=== PATIENT | female | born 2005 | race Caucasian/White ===

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

== ENCOUNTER 2024-01-13 04:03 | Inpatient (IN) | payer OTHER, SELFPAY ==
--- NOTE | 2024-01-13 | ECG_ITS ---
Test Reason : qt interval Blood Pressure : / mmHG Vent. Rate : 087 BPM Atrial Rate : 087 BPM P-R Int : 148 ms QRS Dur : 078 ms QT Int : 366 ms P-R-T Axes : 056 041 038 degrees QTc Int : 440 ms Normal sinus rhythm Possible Lateral infarct , age undetermined Abnormal ECG When compared with ECG of 28-DEC-2023 08:59, No significant change was found Referred By: Jolanta Tate Electronically Signed By:Hussein Gruber
[2024-01-13 04:07] VITALS: BMI 39.0
[2024-01-13 04:32] VITALS: BP 140/89; PULSE 103; RESP 17; TEMP 36.7; O2SAT 96
[2024-01-13 05:05] LABS: Basophils Percent Auto 0.4 % (0-2); Eosinophils Absolute Auto 0.1 X10*3/uL (0.0-0.4); Eosinophils Percent Auto 1.2 % (0-4); Hematocrit 41.5 % (37.0-47.0); Hemoglobin 13.6 g/dl (12.0-16.0); Imm Gran Abs Auto 0.01 X10*3/uL (0.00-0.03); Imm Gran Pct Auto 0.1 % (0.0-0.4); Lymphocytes Absolute Auto 2.2 X10*3/uL (1.2-4.9); MANUAL DIFF FLAG NO; Mean Corpuscular HGB Conc 32.8 g/dl (31.0-35.0); Mean Corpuscular Hemoglobin 27.4 pg (27.0-33.0); Mean Corpuscular Volume 83.7 fL (80.0-98.0); Mean Platelet Volume 10.5 fL (9.4-12.3); Monocytes Absolute Auto 0.5 X10*3/uL (0.1-1.2); Monocytes Percent Auto 6.6 % (2-11); Neutrophils Absolute Auto 4.2 x10*3/uL (2.0-8.3); Neutrophils Percent Auto 60.7 % (45-73); Platelet Count 257 X10*3/uL (160-400); Red Blood Count 4.96 X10*6/uL (4.20-5.50); Red Cell Distribution Width 12.9 % (11.0-16.0); White Blood Count 6.9 X10*3/uL (4.8-10.8)
[2024-01-13 05:19] LABS: Alanine Aminotransferase 27 U/L (0-31); Albumin Level 4.2 g/dL (3.5-5.0); Alkaline Phosphatase 71 U/L (39-117); Anion Gap 14 (12-20); Aspartate Amino Transferase 24 U/L (5-31); Bilirubin Total 0.3 mg/dL (0.0-1.0); Blood Urea Nitrogen 9 mg/dL (9-16); Calcium 9.1 mg/dL (8.4-10.2); Carbon Dioxide 23 mmol/L (22-29); Chloride 108 mmol/L (96-108); Creatinine Clr Calc Pharmacy 119.9; Estimated Glomerular Filt Rate > 60; Ethanol < 10 mg/dL; Glucose Random 120 mg/dL (60-115); Potassium 3.6 mmol/L (3.3-5.1); Sodium 141 mmol/L (135-145); Total Protein 7.6 g/dL (6.5-8.0)
--- NOTE | 2024-01-13 06:09 | ED_ITS ---
HPI - Psych General Chief Complaint: Psychiatric Symptoms Stated Complaint: section 12 Time Seen by Provider: 01/13/24 06:00 Source: patient and EMS Mode of arrival: EMS Limitations: no limitations History of Present Illness ED Provider: DR. Tate HPI Narrative: 18-year-old female brought in by ambulance under section 12 after made a suicidal statement that she will kill herself after having an argument with her family, patient had a history of multiple suicidal attempts in the past, patient was evaluated by [facility] at the scene was sent to the hospital for bed searching. Related Data Home Medications ?Medication ?Instructions ?Recorded ?Confirmed bupropion HCl (smoking deter) 150 150 mg PO DAILY 01/13/24 01/13/24 mg tablet,12 hr sustained-release(smoking deterrent) buspirone 15 mg tablet 15 mg PO QAM 01/13/24 01/13/24 melatonin 5 mg capsule 5 mg PO BEDTIME PRN insomnia 01/13/24 01/13/24 quetiapine 400 mg tablet,extended 400 mg PO BEDTIME depressive 01/13/24 01/13/24 release 24 hr (Seroquel XR) disorder Allergies Allergy/AdvReac Type Severity Reaction Status Date / Time haloperidol [From Haldol] AdvReac Severe Involuntary Verified 01/13/24 04:27 Spasms Review of Systems 2 Review of Systems: All other systems are reviewed and are negative Constitutional: Reports as per HPI and Reports no additional constitutional complaints Eyes: Reports as per HPI and Reports no additional eye complaints Reports system reviewed and no additional complaints, except as documented Cardiovascular: Reports as per HPI and Reports no additional cardiovascular complaints Respiratory: Reports as per HPI and Reports no additional respiratory complaints Gastrointestinal: Reports as per HPI and Reports no additional gastrointestinal complaints Genitourinary: Reports no additional female genitourinary complaints Musculoskeletal: Reports no additional musculoskeletal complaints Skin/Breast: Reports system reviewed and no additional complaints, except as docu Psychiatric: Reports no additional psychiatric complaints Endocrine: Reports no additional endocrine complaints Hematologic/Lymphatic: Reports no additional hematologic/lymphatic complaints Allergic/Immunologic: Reports no additional allergic/immunologic complaints Reports system reviewed and no additional complaints, except as documented and Reports Abnormal speech present PMFSH Past Medical History Medical History TBI (traumatic brain injury) Homicidal ideation Suicidal ideation Social History Social History Household Members: Family Housing: House Do you presently have visiting nurse or other home services: No Unable to assess alcohol history related to: Refusing to respond Comment: pt on 1:1 observation Patient Tobacco Use Status: Never used Tobacco e-Cigarette/Vaping Use: Never Used Second Hand Smoke Exposure: No Advance Directives: No Advance Directives Information Provided: Yes Do you have a plan to hurt others: No Plan service: No Sexual orientation: Unable to collect Physical Exam 2 Vital Signs: Vital Signs: Last Vital Signs Temp 98.1 F 01/13/24 04:32 Pulse 103 H 01/13/24 04:32 Resp 17 01/13/24 04:32 BP 140/89 H 01/13/24 04:32 Pulse Ox 96 01/13/24 04:32 O2 Del Method Room Air 01/13/24 04:32 BMI result Body Mass Index 39.0 Vital signs have been reviewed and appear to be correct. Blood pressure elevated. Heart rate normal. Respiratory rate normal. Temperature normal. Oxygen saturation normal. Appearance: Alert. Oriented X3. No acute distress. Head: Normal external exam. Normocephalic. Atraumatic. No Kaplan signs noted. No raccoon eyes noted Eyes: PERRLA. EOMI. Conjunctiva and sclera normal. Eyelids normal. ENT: TM's Normal. Pharynx normal. Uvula midline. Moist mucous membranes. No trismus noted. No drooling noted. No muffled voice noted. Neck: Normal inspection. Neck supple. FROM. No adenopathy. Thyroid Normal. No meningeal signs. No neck mass noted. CVS: Normal heart rate and rhythm. Heart sound normal. No murmurs noted. Pulses normal throughout. Respiratory: No respiratory distress. Painless inspiration. Breath sounds normal. No wheezes/rales/rhonchi noted. Chest nontender. No accessory muscle usage noted or decreased air movement noted. Abdomen: Soft and nontender. Bowel sounds normal in all 4 quadrants. No distention noted. No organomegaly noted. No visible injury noted. Back: No CVA tenderness. Full range of motion noted. Skin: Skin warm and dry. Normal skin color. Normal skin turgor. No rashes/lesions/lacerations noted. Extremities: No lower extremity edema. Extremities exhibit normal range of motion. Extremities nontender. Neuro: Oriented X 3. Cranial nerve exam: II-XII are grossly intact No motor deficit. No sensory deficit. Reflexes normal. Patient Orientation: Person, Place, Time and Situation, okay hygiene and grooming. Fair eye contact, attentive, no tics or tremors. Level of Consciousness: Awake, Appropriate and Alert Patient Behavior: Appropriate, Guarded, Cooperative and Anxious Mood Description: Constricted, Blunted and Apprehensive Affect Description: Constricted, Blunted and Apprehensive Patient Cognition Impaired: No Ability to Follow Directions: Excellent Speech Pattern: Clear, Appropriate and Spontaneous Speech, nonpressured, spontaneous with regular rate and rhythm, normal volume and prosody. No dysarthria. Memory Description: Intact, Immediate Intact and Short Term Intact Hallucinations: None Delusions: Not Present Thought Process: Intact Thought Content: positive for Intact, suicidal ideation with no plan, denies Homicidal Ideation. Depressive Symptoms: Not present. Judgement and Insight: Limited but adequate. Course Reevaluation(s) Reevaluation #1: Bed search is underway, medically cleared, will start physician observation, signed out to the upcoming physician. Time: 06:15 Medical Decision Making Differential Diagnosis Differential Diagnoses: The differential diagnosis associated with the presentation includes (Acute psychosis, acute depression, medical clearance.) Admission/Observation Consideration of admission/observation: Escalation of care including admission/observation considered Lab Data MDM Lab Attestation statement: I reviewed the patient's lab results. 01/13/24 04:59 01/13/24 04:59 Labs: Lab Results 01/13/24 Range/Units 04:59 WBC 6.9 (4.8-10.8) X10*3/uL RBC 4.96 (4.20-5.50) X10*6/uL Hgb 13.6 (12.0-16.0) g/dl Hct 41.5 (37.0-47.0) % MCV 83.7 (80.0-98.0) fL MCH 27.4 (27.0-33.0) pg MCHC 32.8 (31.0-35.0) g/dl RDW 12.9 (11.0-16.0) % Plt Count 257 (160-400) X10*3/uL MPV 10.5 (9.4-12.3) fL Immature Gran % (Auto) 0.1 (0.0-0.4) % Neut % (Auto) 60.7 (45-73) % Lymph % (Auto) 31.0 (20-40) % [place] % (Auto) 6.6 (2-11) % Eos % (Auto) 1.2 (0-4) % Baso % (Auto) 0.4 (0-2) % Lymph # (Auto) 2.2 (1.2-4.9) X10*3/uL [place] # (Auto) 0.5 (0.1-1.2) X10*3/uL Eos # (Auto) 0.1 (0.0-0.4) X10*3/uL Baso # (Auto) 0.0 (0.0-0.2) X10*3/uL Abs Immat Gran (auto) 0.01 (0.00-0.03) X10*3/uL Absolute Neuts (auto) 4.2 (2.0-8.3) x10*3/uL Absolute Nucleated RBC 0.000 (0.0-0.012) X10*3/uL Nucleated RBC % (auto) 0.0 (0.0-0.2) /100WBC Sodium 141 (135-145) mmol/L Potassium 3.6 (3.3-5.1) mmol/L Chloride 108 (96-108) mmol/L Carbon Dioxide 23 (22-29) mmol/L Anion Gap 14 (12-20) BUN 9 (9-16) mg/dL Creatinine 0.85 (0.5-1.4) mg/dL Estim Creat Clear Calc 119.9 Estimated GFR > 60 Random Glucose 120 H (60-115) mg/dL Calcium 9.1 D (8.4-10.2) mg/dL Total Bilirubin 0.3 (0.0-1.0) mg/dL AST 24 (5-31) U/L ALT 27 (0-31) U/L Alkaline Phosphatase 71 (39-117) U/L Total Protein 7.6 (6.5-8.0) g/dL Albumin 4.2 (3.5-5.0) g/dL Ethyl Alcohol < 10 mg/dL Discharge Plan Discharge Clinical Impression: Depression, Suicidal ideation Patient Disposition: Still a Patient Prescriptions: No Action buspirone 15 mg tablet 15 mg PO QAM quetiapine [Seroquel XR] 400 mg tablet extended release 24 hr 400 mg PO BEDTIME melatonin 5 mg capsule 5 mg PO BEDTIME PRN (Reason: insomnia) bupropion HCl (smoking deter) 150 mg tablet extended release 12 hr 150 mg PO DAILY Interventions: Gregg-Suicide Risk Severity Scale Last Done: 01/13/24 04:34 Print Language: Kiswahili
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
--- NOTE | 2024-01-13 07:13 | PC.NURSE ---
Assumed care of patient at 0645, patient ambulating with steady gait around pod. Offering no complaints to this RN. Patient remains inpatient bedsearch via [facility] at this time
[2024-01-13] MEDS: QUEtiapine Fumarate 200 MG TABLET PO ×2 (08:27→21:33)
[2024-01-13] MEDS: buPROPion HCL 75 MG TABLET 150 MG PO (08:27)
[2024-01-13] MEDS: busPIRone HCl 5 MG TABLET 15 MG PO (08:27)
[2024-01-13 09:09] LABS: Appearance Urine Clear; Color Urine Yellow; Glucose Urine UA Negative (Negative); Leukocyte Esterase Urine Negative (Negative); Nitrite Urine Negative (Negative); PH 6.5 (5.0-9.0); Urine Blood Negative (Negative); Urine Ketones Negative (Negative); Urine Protein Negative (Neg-Trace)
[2024-01-13 09:10] LABS: UPreg QC Valid YES; Urine Pregnancy NEGATIVE (NEGATIVE)
[2024-01-13 09:20] LABS: Amphetamine Screen Urine Not Detected (Not Detect); Barbiturates, Urine Not Detected (Not Detect); Benzodiazepines Screen Urine Not Detected (Not Detect); Buprenorphine Scr Not Detected (Not Detect); Cannabinoid Screen Urine Not Detected (Not Detect); Cocaine Screen Urine Not Detected (Not Detect); Fentanyl, urine Not Detected (Not Detect); Methadone Screen, Urine Not Detected (Not Detect); Opiate Screen Urine Not Detected (Not Detect); Oxycodone Screen Urine Not Detected (Not Detect); Phencyclidine Screen Urine Not Detected (Not Detect)
--- NOTE | 2024-01-13 14:42 | MHC.CARE ---
Patient's new [facility] clinician Ritchie calls for information on patient. Her contact is [phone]. Her email is [email or web address] She would like to be involved in discharge planning/ coordination.
[2024-01-13 17:22] VITALS: BP 132/94; PULSE 111; RESP 16; TEMP 36.6; O2SAT 99
[2024-01-13 17:26] VITALS: BMI 39.0
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
[2024-01-13] MEDS: hydrOXYzine HCL 25 MG TABLET PO (18:41)
[2024-01-13 20:00] VITALS: BP 162/78; PULSE 108; TEMP 37.2; O2SAT 99
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
[2024-01-13] MEDS: Melatonin 3 MG TABLET 6 MG PO (21:33)
[2024-01-14 08:00] VITALS: BP 113/70; PULSE 81; RESP 16; TEMP 36.8; O2SAT 97
--- NOTE | 2024-01-14 08:05 | HO.PSYCHPN ---
Subjective Subjective Date of Service: 01/14/24 Reason For Visit: PTSD; Depression Subjective Notes: Conditional Voluntary Interim History: pt seen in room; pt lying in bed and apperas to be sleeping; she remained mute upon ninteraction; In NAD. compliant with meds. Medication Compliance: Yes Side effects from medications: No Attending Groups: No Review of Systems Medical Review of Systems: unchanged Review of Systems Review of Systems All other systems are reviewed and are negative Constitutional: Reports as per HPI and Reports no additional constitutional complaints Eyes: Reports as per HPI and Reports no additional eye complaints Reports system reviewed and no additional complaints, except as documented Cardiovascular: Reports as per HPI and Reports no additional cardiovascular complaints Respiratory: Reports as per HPI and Reports no additional respiratory complaints Gastrointestinal: Reports as per HPI and Reports no additional gastrointestinal complaints Genitourinary: Reports no additional female genitourinary complaints Musculoskeletal: Reports no additional musculoskeletal complaints Skin/Breast: Reports system reviewed and no additional complaints, except as docu Psychiatric: Reports no additional psychiatric complaints Endocrine: Reports no additional endocrine complaints Hematologic/Lymphatic: Reports no additional hematologic/lymphatic complaints Allergic/Immunologic: Reports no additional allergic/immunologic complaints Reports system reviewed and no additional complaints, except as documented and Reports Abnormal speech present Yes all other systems are reviewed and are negative Mental Status Exam Mental Status Exam Patient Appearance: Appropriate Patient Orientation: Person, Place, Time and Situation Level of Consciousness: Drowsy Patient Behavior: Uncooperative Mood Description: Depressed Affect Description: Flat Patient Cognition Impaired: No Ability to Follow Directions: Good Speech Pattern: No Speech Memory Description: Intact Judgement: Poor Diagnostics Vital Signs (24Hr): Vital Signs - 24 hr 01/13/24 17:22 01/13/24 20:00 Temperature 97.8 F 98.9 F Pulse Rate 111 H 108 H Respiratory Rate 16 Blood Pressure 132/94 H 162/78 H Pulse Oximetry 99 99 Oxygen Delivery Method Room Air Room Air BMI result Body Mass Index 39.0 Labs 01/13/24 04:59 01/13/24 04:59 Labs: Laboratory Results - last 48 hr 01/13/24 01/13/24 04:59 08:59 WBC 6.9 RBC 4.96 Hgb 13.6 Hct 41.5 MCV 83.7 MCH 27.4 MCHC 32.8 RDW 12.9 Plt Count 257 MPV 10.5 Immature Gran % (Auto) 0.1 Neut % (Auto) 60.7 Lymph % (Auto) 31.0 [place] % (Auto) 6.6 Eos % (Auto) 1.2 Baso % (Auto) 0.4 Lymph # (Auto) 2.2 [place] # (Auto) 0.5 Eos # (Auto) 0.1 Baso # (Auto) 0.0 Abs Immat Gran (auto) 0.01 Absolute Neuts (auto) 4.2 Absolute Nucleated RBC 0.000 Nucleated RBC % (auto) 0.0 Sodium 141 Potassium 3.6 Chloride 108 Carbon Dioxide 23 Anion Gap 14 BUN 9 Creatinine 0.85 Estim Creat Clear Calc 119.9 Estimated GFR > 60 Random Glucose 120 H Calcium 9.1 D Total Bilirubin 0.3 AST 24 ALT 27 Alkaline Phosphatase 71 Total Protein 7.6 Albumin 4.2 Urine Color Yellow Urine Appearance Clear Urine pH 6.5 Ur Specific [place] 1.020 Urine Protein Negative Urine Glucose (UA) Negative Urine Ketones Negative Urine Blood Negative Urine Nitrite Negative Ur Leukocyte Esterase Negative Urine Test NEGATIVE Urine Opiates Screen Not Detected Ur Buprenorphine Scrn Not Detected Ur Oxycodone Screen Not Detected Urine Methadone Screen Not Detected Urine Fentanyl Screen Not Detected Ur Barbiturates Screen Not Detected Ur Phencyclidine Scrn Not Detected Ur Amphetamines Screen Not Detected U Benzodiazepines Scrn Not Detected Urine Cocaine Screen Not Detected U Marijuana (THC) Screen Not Detected Ethyl Alcohol < 10 Medications Medications Current Medications Acetaminophen (Acetaminophen 325 Mg Tablet) 650 mg PO Q6H PRN PRN Reason: Headache/Pain Mild Scale (1-3) Al Hydroxide/Mg Hydroxide (Magnesium Hydrox/Alum Hydrox 30 Ml Oral.Susp) 30 ml PO Q6H PRN PRN Reason: Heartburn/Nausea Bupropion HCl (Bupropion Hcl Xl 150 Mg Tab.Er.24h) 150 mg PO DAILY MARY Buspirone HCl (Buspirone Hcl 5 Mg Tablet) 15 mg PO DAILY MARY Hydroxyzine HCl (Hydroxyzine Hcl 25 Mg Tablet) 25 mg PO Q6H PRN PRN Reason: Anxiety Last Admin: 01/13/24 18:41 Dose: 25 mg Magnesium Hydroxide (Milk Of Magnesia 30 Ml Oral.Susp) 30 ml PO DAILY PRN PRN Reason: Constipation Melatonin (Melatonin 3 Mg Tablet) 6 mg PO BEDTIME PRN PRN Reason: Insomnia Last Admin: 01/13/24 21:33 Dose: 6 mg Quetiapine Fumarate (Quetiapine Fumarate 200 Mg Tablet) 200 mg PO BID MARY Last Admin: 01/13/24 21:33 Dose: 200 mg Trazodone HCl (Trazodone Hcl 50 Mg Tablet) 50 mg PO BEDTIME MRX1 PRN PRN Reason: Insomnia Allergies Allergies Allergy/AdvReac Type Severity Reaction Status Date / Time haloperidol [From Haldol] AdvReac Severe Involuntary Verified 01/13/24 04:27 Spasms Assessment & Plan Assessment & Plan (1) PTSD (post-traumatic stress disorder): Status: Acute Code(s): F43.10 - Post-traumatic stress disorder, unspecified (2) MDD (major depressive disorder), recurrent, severe, with psychosis: Status: Acute Code(s): F33.3 - Major depressive disorder, recurrent, severe with psychotic symptoms (3) Borderline personality disorder: Status: Acute Code(s): F60.3 - Borderline personality disorder (4) Suicidal ideation: Status: Acute Code(s): R45.851 - Suicidal ideations Plan 18 yo female, history of PTSD, Major Depression, Borderline personality disorder presents with acute SI in the context of medicine noncompliance per her report. Plan: Admit, CV, 15 minute checks- pt believes she can manage this at this time. Collateral contact with treatment team Re-establish regime-pt agrees Full milieu 01/14/24 continue treatment plan Reason for continued inpatient stay Substantial Risk for: harm to self, inability to function and rapid decompensation Time Spent With Patient Time: Total time managing care of this patient today ____ minutes.
[2024-01-14 08:06] LABS: Estimated Average Glucose 103 mg/dL; Hemoglobin A1c % 5.2 % (<6.0)
[2024-01-14 08:18] LABS: Cholesterol 157 mg/dL (<200); HDL Cholesterol 52 mg/dL (>40); LDL Cholesterol Calculated 96 mg/dL (<100); Magnesium 1.8 mg/dL (1.6-2.6); Triglycerides 45 mg/dL (<150)
[2024-01-14 08:33] LABS: Free T4 (Free Thyroxine) 0.84 ng/dL (0.71-1.85); Thyroid Stimulating Hormone 0.76 uIU/mL (0.32-4.0)
[2024-01-14 08:45] LABS: Folate 13.1 ng/mL (> or = 4.0); Vitamin B12 375 pg/mL (200-900)
[2024-01-14] MEDS: QUEtiapine Fumarate 200 MG TABLET PO ×2 (09:15→21:25)
[2024-01-14] MEDS: busPIRone HCl 5 MG TABLET 15 MG PO (09:15)
[2024-01-14] MEDS: buPROPion HCl XL 150 MG TAB.ER.24H PO (09:16)
[2024-01-14 20:00] VITALS: BP 128/77; PULSE 99; TEMP 37; O2SAT 99
[2024-01-15 08:00] VITALS: BP 110/59; PULSE 83; RESP 16; TEMP 37.2; O2SAT 96
--- NOTE | 2024-01-15 10:26 | HO.PSYCHPN ---
Subjective Subjective Date of Service: 01/15/24 Reason For Visit: PTSD; Depression Interim History: pt more easily engaged today; good eye contact; requests seroquele dosing to be at night as she didn't sleep at night and them slept 10+ during the day. no self harm Medication Compliance: Yes Side effects from medications: Yes (not sleeping then daytime sedation) Review of Systems Review of Systems All other systems are reviewed and are negative Constitutional: Reports as per HPI and Reports no additional constitutional complaints Eyes: Reports as per HPI and Reports no additional eye complaints Reports system reviewed and no additional complaints, except as documented Cardiovascular: Reports as per HPI and Reports no additional cardiovascular complaints Respiratory: Reports as per HPI and Reports no additional respiratory complaints Gastrointestinal: Reports as per HPI and Reports no additional gastrointestinal complaints Genitourinary: Reports no additional female genitourinary complaints Musculoskeletal: Reports no additional musculoskeletal complaints Skin/Breast: Reports system reviewed and no additional complaints, except as docu Psychiatric: Reports no additional psychiatric complaints Endocrine: Reports no additional endocrine complaints Hematologic/Lymphatic: Reports no additional hematologic/lymphatic complaints Allergic/Immunologic: Reports no additional allergic/immunologic complaints Reports system reviewed and no additional complaints, except as documented and Reports Abnormal speech present Yes all other systems are reviewed and are negative Mental Status Exam Mental Status Exam Patient Appearance: Appropriate Patient Orientation: Person, Place, Time and Situation Level of Consciousness: Drowsy Patient Behavior: Uncooperative Mood Description: Depressed Affect Description: Flat Patient Cognition Impaired: No Ability to Follow Directions: Good Speech Pattern: No Speech Memory Description: Intact Judgement: Fair Diagnostics Vital Signs (24Hr): Vital Signs - 24 hr 01/14/24 20:00 Temperature 98.6 F Pulse Rate 99 Blood Pressure 128/77 Pulse Oximetry 99 Oxygen Delivery Method Room Air BMI result Body Mass Index 39.0 Labs 01/13/24 04:59 01/13/24 04:59 Labs: Laboratory Results - last 48 hr 01/14/24 07:47 Estimat Average Glucose 103 Hemoglobin A1c % 5.2 Magnesium 1.8 Triglycerides 45 Cholesterol 157 LDL Cholesterol, Calc 96 HDL Cholesterol 52 Vitamin B12 375 Folate 13.1 TSH 0.76 Free T4 0.84 Medications Medications Current Medications Acetaminophen (Acetaminophen 325 Mg Tablet) 650 mg PO Q6H PRN PRN Reason: Headache/Pain Mild Scale (1-3) Al Hydroxide/Mg Hydroxide (Magnesium Hydrox/Alum Hydrox 30 Ml Oral.Susp) 30 ml PO Q6H PRN PRN Reason: Heartburn/Nausea Bupropion HCl (Bupropion Hcl Xl 150 Mg Tab.Er.24h) 150 mg PO DAILY [facility] Last Admin: 01/14/24 09:16 Dose: 150 mg Buspirone HCl (Buspirone Hcl 5 Mg Tablet) 15 mg PO DAILY [facility] Last Admin: 01/14/24 09:15 Dose: 15 mg Hydroxyzine HCl (Hydroxyzine Hcl 25 Mg Tablet) 25 mg PO Q6H PRN PRN Reason: Anxiety Last Admin: 01/13/24 18:41 Dose: 25 mg Magnesium Hydroxide (Milk Of Magnesia 30 Ml Oral.Susp) 30 ml PO DAILY PRN PRN Reason: Constipation Melatonin (Melatonin 3 Mg Tablet) 6 mg PO BEDTIME PRN PRN Reason: Insomnia Last Admin: 01/13/24 21:33 Dose: 6 mg Quetiapine Fumarate (Quetiapine Fumarate 200 Mg Tablet) 200 mg PO BID [facility] Last Admin: 01/14/24 21:25 Dose: 200 mg Trazodone HCl (Trazodone Hcl 50 Mg Tablet) 50 mg PO BEDTIME MRX1 PRN PRN Reason: Insomnia Allergies Allergies Allergy/AdvReac Type Severity Reaction Status Date / Time haloperidol [From Haldol] AdvReac Severe Involuntary Verified 01/13/24 04:27 Spasms Assessment & Plan Assessment & Plan (1) PTSD (post-traumatic stress disorder): Status: Acute Code(s): F43.10 - Post-traumatic stress disorder, unspecified (2) MDD (major depressive disorder), recurrent, severe, with psychosis: Status: Acute Code(s): F33.3 - Major depressive disorder, recurrent, severe with psychotic symptoms (3) Borderline personality disorder: Status: Acute Code(s): F60.3 - Borderline personality disorder (4) Suicidal ideation: Status: Acute Code(s): R45.851 - Suicidal ideations Plan 18 yo female, history of PTSD, Major Depression, Borderline personality disorder presents with acute SI in the context of medicine noncompliance per her report. Plan: Admit, CV, 15 minute checks- pt believes she can manage this at this time. Collateral contact with treatment team Re-establish regime-pt agrees Full milieu 01/14/24 continue treatment plan 01/14 seroquel 400mg at bedtime Reason for continued inpatient stay Substantial Risk for: harm to self and inability to function Time Spent With Patient Time: Total time managing care of this patient today ____ minutes.
[2024-01-15] MEDS: busPIRone HCl 5 MG TABLET 15 MG PO (10:32)
[2024-01-15] MEDS: buPROPion HCl XL 150 MG TAB.ER.24H PO (10:33)
[2024-01-15 20:00] VITALS: BP 144/102; PULSE 95; RESP 18; TEMP 37; O2SAT 94
[2024-01-15] MEDS: Melatonin 3 MG TABLET 6 MG PO (22:08)
[2024-01-15] MEDS: QUEtiapine Fumarate 400 MG TABLET PO (22:09)
[2024-01-16 08:00] VITALS: BP 107/47; PULSE 87; RESP 16; TEMP 37.4; O2SAT 98
[2024-01-16] MEDS: buPROPion HCl XL 150 MG TAB.ER.24H PO (11:17)
[2024-01-16] MEDS: busPIRone HCl 5 MG TABLET 15 MG PO (11:17)
[2024-01-16] MEDS: hydrOXYzine HCL 25 MG TABLET PO ×2 (16:57→23:55)
--- NOTE | 2024-01-16 19:03 | P.PNPSI_ITS ---
Subjective Subjective Date of Service: 01/16/24 Reason For Visit: PTSD; Depression Interim History: pt more visible on unit; more eye contact; more easily engaged; brighter; Medication Compliance: Yes Side effects from medications: No Attending Groups: No Review of Systems Review of Systems All other systems are reviewed and are negative Constitutional: Reports as per HPI and Reports no additional constitutional complaints Eyes: Reports as per HPI and Reports no additional eye complaints Reports system reviewed and no additional complaints, except as documented Cardiovascular: Reports as per HPI and Reports no additional cardiovascular complaints Respiratory: Reports as per HPI and Reports no additional respiratory complaints Gastrointestinal: Reports as per HPI and Reports no additional gastrointestinal complaints Genitourinary: Reports no additional female genitourinary complaints Musculoskeletal: Reports no additional musculoskeletal complaints Skin/Breast: Reports system reviewed and no additional complaints, except as docu Psychiatric: Reports no additional psychiatric complaints Endocrine: Reports no additional endocrine complaints Hematologic/Lymphatic: Reports no additional hematologic/lymphatic complaints Allergic/Immunologic: Reports no additional allergic/immunologic complaints Reports system reviewed and no additional complaints, except as documented and Reports Abnormal speech present Yes all other systems are reviewed and are negative Mental Status Exam Mental Status Exam Patient Appearance: Appropriate Patient Orientation: Person, Place, Time and Situation Level of Consciousness: Drowsy Patient Behavior: Uncooperative Mood Description: Depressed Affect Description: Flat Patient Cognition Impaired: No Ability to Follow Directions: Good Speech Pattern: No Speech Memory Description: Intact Thought Process: Distracted Thought Content: positive for Lipscomb Judgement: Fair Diagnostics Vital Signs (24Hr): Vital Signs - 24 hr 01/15/24 20:00 01/16/24 08:00 Temperature 98.6 F 99.3 F Pulse Rate 95 87 Respiratory Rate 18 16 Blood Pressure 144/102 H 107/47 L Pulse Oximetry 94 98 Oxygen Delivery Method Room Air Room Air BMI result Body Mass Index 39.0 Labs 01/13/24 04:59 01/13/24 04:59 Medications Medications Current Medications Acetaminophen (Acetaminophen 325 Mg Tablet) 650 mg PO Q6H PRN PRN Reason: Headache/Pain Mild Scale (1-3) Al Hydroxide/Mg Hydroxide (Magnesium Hydrox/Alum Hydrox 30 Ml Oral.Susp) 30 ml PO Q6H PRN PRN Reason: Heartburn/Nausea Bupropion HCl (Bupropion Hcl Xl 150 Mg Tab.Er.24h) 150 mg PO DAILY [facility] Last Admin: 05/27/24 11:17 Dose: 150 mg Buspirone HCl (Buspirone Hcl 5 Mg Tablet) 15 mg PO DAILY [facility] Last Admin: 01/16/24 11:17 Dose: 15 mg Hydroxyzine HCl (Hydroxyzine Hcl 25 Mg Tablet) 25 mg PO Q6H PRN PRN Reason: Anxiety Last Admin: 01/16/24 16:57 Dose: 25 mg Magnesium Hydroxide (Milk Of Magnesia 30 Ml Oral.Susp) 30 ml PO DAILY PRN PRN Reason: Constipation Melatonin (Melatonin 3 Mg Tablet) 6 mg PO BEDTIME [facility] Last Admin: 01/15/24 22:08 Dose: 6 mg Pt Own (Quetiapine [ Seroquel Xr] 400 Mg Tablet Extended Release 24 Hr) 400 mg PO BEDTIME [facility] Trazodone HCl (Trazodone Hcl 50 Mg Tablet) 50 mg PO BEDTIME MRX1 PRN PRN Reason: Insomnia Allergies Allergies Allergy/AdvReac Type Severity Reaction Status Date / Time haloperidol [From Haldol] AdvReac Severe Involuntary Verified 01/13/24 04:27 Spasms Assessment & Plan Assessment & Plan (1) PTSD (post-traumatic stress disorder): Status: Acute Code(s): F43.10 - Post-traumatic stress disorder, unspecified (2) MDD (major depressive disorder), recurrent, severe, with psychosis: Status: Acute Code(s): F33.3 - Major depressive disorder, recurrent, severe with psychotic symptoms (3) Borderline personality disorder: Status: Acute Code(s): F60.3 - Borderline personality disorder (4) Suicidal ideation: Status: Acute Code(s): R45.851 - Suicidal ideations Plan 18 yo female, history of PTSD, Major Depression, Borderline personality disorder presents with acute SI in the context of medicine noncompliance per her report. Plan: Admit, CV, 15 minute checks- pt believes she can manage this at this time. Collateral contact with treatment team Re-establish regime-pt agrees Full milieu 01/14/24 continue treatment plan 01/14 seroquel 400mg at bedtime 01/15 continue tx plan Reason for continued inpatient stay Substantial Risk for: harm to self, inability to function and rapid decompensation Time Spent With Patient Time: Total time managing care of this patient today ____ minutes.
[2024-01-16 20:00] VITALS: BP 137/76; PULSE 107; RESP 17; TEMP 36.4; O2SAT 96
[2024-01-16] MEDS: traZODone HCL 50 MG TABLET PO (20:25)
[2024-01-16] MEDS: Melatonin 3 MG TABLET 6 MG PO (20:25)
[2024-01-16] MEDS: OLANZapine 5 MG TABLET PO (23:00)
--- NOTE | 2024-01-17 05:29 | PC.NURSE ---
[facility] on floor noted patient had very small piece of plastic that almost looked like a fingernail that she was poking her wrist with and would not give it to staff. Object was so small and pliable that no trauma could occur. Soon after patient started to bang her head on the wall without much force but consistently. Staff intervened and put a pillow on the wall. The patient stopped shortly after. The patient was compliant with meds before this occurred. RN texted MD who ordered medication and a one to one for self harm/safety. Zyprexa was administered. Patient was restless last night and slept for approximately 5 hours without any further incidence.
[2024-01-17 08:00] VITALS: BP 122/51; PULSE 88; RESP 16; TEMP 36.1; O2SAT 98
[2024-01-17] MEDS: busPIRone HCl 5 MG TABLET 15 MG PO (10:02)
[2024-01-17] MEDS: buPROPion HCl XL 150 MG TAB.ER.24H PO (10:02)
--- NOTE | 2024-01-17 10:21 | HO.PSYCHPN ---
Subjective Subjective Date of Service: 01/17/24 Reason For Visit: PTSD; Depression Subjective Notes: Conditional Voluntary Healthcare Proxy: No Guardianship: No Medical Problems Affecting Mental Status: No Interim History: Reviewed with team. +SI, inability to contract for safety. Cites difficult family interaction over the weekend. I want to because I can't take my family. One to one status returned. Non verbal-offers her journal entries and writing responses today. Very communicative in writing. Identifies that going off of meds has caused her to feel more unsafe and she is now thinking that trialing one med at a time was not a good idea. Aware that buspirone does not work, Naltrexone helps. Asks about another antidepressant. Connection attempted with Dr. Pablo with her permission. Medication Compliance: Yes Side effects from medications: No Attending Groups: Intermittent Review of Systems Acute medical concerns: No Medical Review of Systems: unchanged Review of Systems Review of Systems Yes all other systems are reviewed and are negative Mental Status Exam Mental Status Exam Patient Appearance: Appropriate Patient Orientation: Person, Place, Time and Situation Level of Consciousness: Alert Patient Behavior: Good Eye Contact Mood Description: Depressed Affect Description: Flat Patient Cognition Impaired: No Ability to Follow Directions: Good Speech Pattern: No Speech (written communication only.) Memory Description: Intact Hallucinations: None Perceptual Disturbances: Depersonalization and Derealization Thought Process: Rumination Thought Content: positive for Preoccupation and positive for Suicidal Ideation Depressive Symptoms: Increased Anxiety, Hopelessness, Unhappiness and Thoughts of /Suicide Judgement: Poor Diagnostics Vital Signs (24Hr): Vital Signs - 24 hr 01/16/24 20:00 Temperature 97.6 F Pulse Rate 107 H Respiratory Rate 17 Blood Pressure 137/76 Pulse Oximetry 96 Oxygen Delivery Method Room Air BMI result Body Mass Index 39.0 Labs 01/13/24 04:59 01/13/24 04:59 Medications Medications Current Medications Acetaminophen (Acetaminophen 325 Mg Tablet) 650 mg PO Q6H PRN PRN Reason: Headache/Pain Mild Scale (1-3) Al Hydroxide/Mg Hydroxide (Magnesium Hydrox/Alum Hydrox 30 Ml Oral.Susp) 30 ml PO Q6H PRN PRN Reason: Heartburn/Nausea Bupropion HCl (Bupropion Hcl Xl 150 Mg Tab.Er.24h) 150 mg PO DAILY [facility] Last Admin: 01/17/24 10:02 Dose: 150 mg Buspirone HCl (Buspirone Hcl 5 Mg Tablet) 15 mg PO DAILY [facility] Last Admin: 01/17/24 10:02 Dose: 15 mg Hydroxyzine HCl (Hydroxyzine Hcl 25 Mg Tablet) 25 mg PO Q6H PRN PRN Reason: Anxiety Last Admin: 01/16/24 23:55 Dose: 25 mg Magnesium Hydroxide (Milk Of Magnesia 30 Ml Oral.Susp) 30 ml PO DAILY PRN PRN Reason: Constipation Melatonin (Melatonin 3 Mg Tablet) 6 mg PO BEDTIME [facility] Last Admin: 01/16/24 20:25 Dose: 6 mg Pt Own (Quetiapine [ Seroquel Xr] 400 Mg Tablet Extended Release 24 Hr) 400 mg PO BEDTIME [facility] Last Admin: 01/16/24 20:28 Dose: 400 mg Olanzapine (Olanzapine 5 Mg Tablet) 5 mg PO TID PRN PRN Reason: agitation Last Admin: 01/16/24 23:00 Dose: 5 mg Trazodone HCl (Trazodone Hcl 50 Mg Tablet) 50 mg PO BEDTIME MRX1 PRN PRN Reason: Insomnia Last Admin: 01/16/24 20:25 Dose: 50 mg Allergies Allergies Allergy/AdvReac Type Severity Reaction Status Date / Time haloperidol [From Haldol] AdvReac Severe Involuntary Verified 01/13/24 04:27 Spasms Assessment & Plan Assessment & Plan (1) PTSD (post-traumatic stress disorder): Status: Acute Code(s): F43.10 - Post-traumatic stress disorder, unspecified (2) MDD (major depressive disorder), recurrent, severe, with psychosis: Status: Acute Code(s): F33.3 - Major depressive disorder, recurrent, severe with psychotic symptoms (3) Borderline personality disorder: Status: Acute Code(s): F60.3 - Borderline personality disorder (4) Suicidal ideation: Status: Acute Code(s): R45.851 - Suicidal ideations Plan 18 yo female, history of PTSD, Major Depression, Borderline personality disorder presents with acute SI in the context of medicine noncompliance per her report. Plan: Admit, CV, 15 minute checks- pt believes she can manage this at this time. Collateral contact with treatment team Re-establish regime-pt agrees Full milieu 01/14/24 continue treatment plan 01/14 seroquel 400mg at bedtime 01/15 continue tx plan 01/16 restart Naltrexone 50 mg daily Informed Consent: understands and further education needed Reason for continued inpatient stay Substantial Risk for: rapid decompensation Time Spent With Patient Time: Total time managing care of this patient today ____ minutes.
[2024-01-17 19:46] VITALS: BP 132/83; PULSE 92; RESP 16; TEMP 37.7; O2SAT 97
[2024-01-17] MEDS: Melatonin 3 MG TABLET 6 MG PO (21:09)
[2024-01-17] MEDS: OLANZapine 5 MG TABLET PO (21:11)
--- NOTE | 2024-01-18 10:00 | P.PNPSI_ITS ---
Subjective Subjective Date of Service: 01/18/24 Reason For Visit: PTSD; Depression Subjective Notes: Conditional Voluntary Healthcare Proxy: No Guardianship: No Medical Problems Affecting Mental Status: No Interim History: I really don't want to talk today. One to one in place Agreeable to review Dr. Pablo's list of trials pt has had which she did and agrees- these are in her intake note. Will trial Sertraline 25 mg a.m., Clonidine 0.1 mg bid prn for anxiety and Lorazepam 0.5 mg q12h prn for severe anxiety. Pt concurs +SI/-HI/-AH/-VH Medication Compliance: Yes Side effects from medications: No Attending Groups: Intermittent Review of Systems Acute medical concerns: No Medical Review of Systems: unchanged Review of Systems Review of Systems Yes all other systems are reviewed and are negative Mental Status Exam Mental Status Exam Patient Appearance: Appropriate Patient Orientation: Person, Place, Time and Situation Level of Consciousness: Alert Patient Behavior: Good Eye Contact Mood Description: Depressed Affect Description: Flat Patient Cognition Impaired: No Ability to Follow Directions: Good Speech Pattern: Spontaneous Speech Memory Description: Intact Hallucinations: None Perceptual Disturbances: Depersonalization and Derealization Thought Process: Rumination Thought Content: positive for Preoccupation and positive for Suicidal Ideation Depressive Symptoms: Increased Anxiety, Hopelessness, Unhappiness and Thoughts of /Suicide Judgement: Poor Diagnostics Vital Signs (24Hr): Vital Signs - 24 hr 01/17/24 19:46 Temperature 99.8 F Pulse Rate 92 Respiratory Rate 16 Blood Pressure 132/83 Pulse Oximetry 97 Oxygen Delivery Method Room Air BMI result Body Mass Index 39.0 Labs 01/13/24 04:59 01/13/24 04:59 Medications Medications Current Medications Acetaminophen (Acetaminophen 325 Mg Tablet) 650 mg PO Q6H PRN PRN Reason: Headache/Pain Mild Scale (1-3) Al Hydroxide/Mg Hydroxide (Magnesium Hydrox/Alum Hydrox 30 Ml Oral.Susp) 30 ml PO Q6H PRN PRN Reason: Heartburn/Nausea Bupropion HCl (Bupropion Hcl Xl 150 Mg Tab.Er.24h) 150 mg PO DAILY [facility] Last Admin: 01/17/24 10:02 Dose: 150 mg Buspirone HCl (Buspirone Hcl 5 Mg Tablet) 15 mg PO DAILY [facility] Last Admin: 01/17/24 10:02 Dose: 15 mg Hydroxyzine HCl (Hydroxyzine Hcl 25 Mg Tablet) 25 mg PO Q6H PRN PRN Reason: Anxiety Last Admin: 01/16/24 23:55 Dose: 25 mg Magnesium Hydroxide (Milk Of Magnesia 30 Ml Oral.Susp) 30 ml PO DAILY PRN PRN Reason: Constipation Melatonin (Melatonin 3 Mg Tablet) 6 mg PO BEDTIME [facility] Last Admin: 01/17/24 21:09 Dose: 6 mg Naltrexone HCl (Naltrexone Hcl 50 Mg Tablet) 50 mg PO DAILY [facility] Pt Own (Quetiapine [ Seroquel Xr] 400 Mg Tablet Extended Release 24 Hr) 400 mg PO BEDTIME [facility] Last Admin: 01/17/24 21:09 Dose: 400 mg Olanzapine (Olanzapine 5 Mg Tablet) 5 mg PO TID PRN PRN Reason: agitation Last Admin: 01/17/24 21:11 Dose: 5 mg Trazodone HCl (Trazodone Hcl 50 Mg Tablet) 50 mg PO BEDTIME MRX1 PRN PRN Reason: Insomnia Last Admin: 01/16/24 20:25 Dose: 50 mg Allergies Allergies Allergy/AdvReac Type Severity Reaction Status Date / Time haloperidol [From Haldol] AdvReac Severe Involuntary Verified 01/13/24 04:27 Spasms Assessment & Plan Assessment & Plan (1) PTSD (post-traumatic stress disorder): Status: Acute Code(s): F43.10 - Post-traumatic stress disorder, unspecified (2) MDD (major depressive disorder), recurrent, severe, with psychosis: Status: Acute Code(s): F33.3 - Major depressive disorder, recurrent, severe with psychotic symptoms (3) Borderline personality disorder: Status: Acute Code(s): F60.3 - Borderline personality disorder (4) Suicidal ideation: Status: Acute Code(s): R45.851 - Suicidal ideations Plan 18 yo female, history of PTSD, Major Depression, Borderline personality disorder presents with acute SI in the context of medicine noncompliance per her report. Plan: Admit, CV, 15 minute checks- pt believes she can manage this at this time. Collateral contact with treatment team Re-establish regime-pt agrees Full milieu 01/14/24 continue treatment plan 01/14 seroquel 400mg at bedtime 01/15 continue tx plan 01/16 restart Naltrexone 50 mg daily 01/17 Clonidine 0.1 mg bid prn anxiety Lorazepam 0.5 mg q12h prn severe anxiety Sertraline 25 mg daily Patient educated on: medication risk/benefits Informed Consent: further education needed Reason for continued inpatient stay Substantial Risk for: rapid decompensation Time Spent With Patient Time: Total time managing care of this patient today ____ minutes.
[2024-01-18] MEDS: Naltrexone HCl 50 MG TABLET PO (11:45)
[2024-01-18] MEDS: busPIRone HCl 5 MG TABLET 15 MG PO (11:45)
[2024-01-18] MEDS: buPROPion HCl XL 150 MG TAB.ER.24H PO (11:45)
[2024-01-18 20:00] VITALS: BP 123/73; PULSE 95; RESP 18; TEMP 37.7; O2SAT 98
[2024-01-18] MEDS: Melatonin 3 MG TABLET 6 MG PO (21:13)
[2024-01-18] MEDS: traZODone HCL 50 MG TABLET PO (21:13)
[2024-01-18] MEDS: hydrOXYzine HCL 25 MG TABLET PO (21:21)
[2024-01-19 08:00] VITALS: BP 112/55; PULSE 79; RESP 16; TEMP 37; O2SAT 99
[2024-01-19] MEDS: Sertraline HCL 25 MG TABLET PO (09:33)
[2024-01-19] MEDS: busPIRone HCl 5 MG TABLET 15 MG PO (09:33)
[2024-01-19] MEDS: buPROPion HCl XL 150 MG TAB.ER.24H PO (09:33)
[2024-01-19] MEDS: hydrOXYzine HCL 25 MG TABLET PO ×2 (09:33→21:09)
[2024-01-19] MEDS: OLANZapine 5 MG TABLET PO (09:33)
[2024-01-19] MEDS: Naltrexone HCl 50 MG TABLET PO (09:33)
--- NOTE | 2024-01-19 16:13 | HO.PSYCHPN ---
Subjective Subjective Date of Service: 01/19/24 Reason For Visit: PTSD; Depression Subjective Notes: Conditional Voluntary Healthcare Proxy: No Guardianship: No Medical Problems Affecting Mental Status: No Interim History: Tolerated initial dose of Sertraline today. Utilized prn Ativan x1. This a.m. non verbal, isolative, no questions for tw. Later in the day interacting with her one to one and appearing brighter. No adverse events noted with med change. The team reports no self-injurious symptoms. OP team met with social service director today. Medication Compliance: Yes Side effects from medications: No Attending Groups: Intermittent Review of Systems Acute medical concerns: No Medical Review of Systems: unchanged Review of Systems Review of Systems Yes all other systems are reviewed and are negative Mental Status Exam Mental Status Exam Patient Appearance: Appropriate Patient Orientation: Person, Place, Time and Situation Level of Consciousness: Alert Patient Behavior: Good Eye Contact Mood Description: Depressed Affect Description: Flat Patient Cognition Impaired: No Ability to Follow Directions: Good Speech Pattern: Spontaneous Speech and No Speech Memory Description: Intact Hallucinations: None Perceptual Disturbances: Depersonalization and Derealization Thought Process: Rumination Thought Content: positive for Preoccupation and positive for Suicidal Ideation Depressive Symptoms: Increased Anxiety, Hopelessness, Unhappiness and Thoughts of /Suicide Judgement: Poor Diagnostics Vital Signs (24Hr): Vital Signs - 24 hr 01/18/24 20:00 01/19/24 08:00 Temperature 99.8 F 98.6 F Pulse Rate 95 79 Respiratory Rate 18 16 Blood Pressure 123/73 112/55 L Pulse Oximetry 98 99 Oxygen Delivery Method Room Air Room Air BMI result Body Mass Index 39.0 Labs 01/13/24 04:59 01/13/24 04:59 Medications Medications Current Medications Acetaminophen (Acetaminophen 325 Mg Tablet) 650 mg PO Q6H PRN PRN Reason: Headache/Pain Mild Scale (1-3) Al Hydroxide/Mg Hydroxide (Magnesium Hydrox/Alum Hydrox 30 Ml Oral.Susp) 30 ml PO Q6H PRN PRN Reason: Heartburn/Nausea Bupropion HCl (Bupropion Hcl Xl 150 Mg Tab.Er.24h) 150 mg PO DAILY [facility] Last Admin: 01/19/24 09:33 Dose: 150 mg Buspirone HCl (Buspirone Hcl 5 Mg Tablet) 15 mg PO DAILY [facility] Last Admin: 01/19/24 09:33 Dose: 15 mg Clonidine HCl (Clonidine Hcl 0.1 Mg Tablet) 0.1 mg PO BID PRN; Protocol PRN Reason: anxiety Hydroxyzine HCl (Hydroxyzine Hcl 25 Mg Tablet) 25 mg PO Q6H PRN PRN Reason: Anxiety Last Admin: 01/19/24 09:33 Dose: 25 mg Lorazepam (Lorazepam 0.5 Mg Tablet) 0.5 mg PO Q12H PRN PRN Reason: severe anxiety Magnesium Hydroxide (Milk Of Magnesia 30 Ml Oral.Susp) 30 ml PO DAILY PRN PRN Reason: Constipation Melatonin (Melatonin 3 Mg Tablet) 6 mg PO BEDTIME [facility] Last Admin: 01/18/24 21:13 Dose: 6 mg Naltrexone HCl (Naltrexone Hcl 50 Mg Tablet) 50 mg PO DAILY [facility] Last Admin: 01/19/24 09:33 Dose: 50 mg Pt Own (Quetiapine [ Seroquel Xr] 400 Mg Tablet Extended Release 24 Hr) 400 mg PO BEDTIME [facility] Last Admin: 01/18/24 21:18 Dose: 400 mg Olanzapine (Olanzapine 5 Mg Tablet) 5 mg PO TID PRN PRN Reason: agitation Last Admin: 01/19/24 09:33 Dose: 5 mg Sertraline HCl (Sertraline Hcl 25 Mg Tablet) 25 mg PO DAILY [facility] Last Admin: 01/19/24 09:33 Dose: 25 mg Trazodone HCl (Trazodone Hcl 50 Mg Tablet) 50 mg PO BEDTIME MRX1 PRN PRN Reason: Insomnia Last Admin: 01/18/24 21:13 Dose: 50 mg Allergies Allergies Allergy/AdvReac Type Severity Reaction Status Date / Time haloperidol [From Haldol] AdvReac Severe Involuntary Verified 01/13/24 04:27 Spasms Assessment & Plan Assessment & Plan (1) PTSD (post-traumatic stress disorder): Status: Acute Code(s): F43.10 - Post-traumatic stress disorder, unspecified (2) MDD (major depressive disorder), recurrent, severe, with psychosis: Status: Acute Code(s): F33.3 - Major depressive disorder, recurrent, severe with psychotic symptoms (3) Borderline personality disorder: Status: Acute Code(s): F60.3 - Borderline personality disorder (4) Suicidal ideation: Status: Acute Code(s): R45.851 - Suicidal ideations Plan 18 yo female, history of PTSD, Major Depression, Borderline personality disorder presents with acute SI in the context of medicine noncompliance per her report. Plan: Admit, CV, 15 minute checks- pt believes she can manage this at this time. Collateral contact with treatment team Re-establish regime-pt agrees Full milieu 01/18- Continue tx Informed Consent: further education needed Reason for continued inpatient stay Substantial Risk for: rapid decompensation Time Spent With Patient Time: Total time managing care of this patient today ____ minutes.
[2024-01-19] MEDS: LORazepam 0.5 MG TABLET PO (16:56)
[2024-01-19] MEDS: Melatonin 3 MG TABLET 6 MG PO (21:09)
[2024-01-19] MEDS: traZODone HCL 50 MG TABLET PO (21:10)
[2024-01-19 22:17] VITALS: BP 115/60; PULSE 88; TEMP 36.4; O2SAT 97
--- NOTE | 2024-01-20 | ECG_ITS ---
Test Reason : lt side chest, arm pain Blood Pressure : / mmHG Vent. Rate : 097 BPM Atrial Rate : 097 BPM P-R Int : 140 ms QRS Dur : 078 ms QT Int : 356 ms P-R-T Axes : 068 039 042 degrees QTc Int : 452 ms Normal sinus rhythm Normal ECG When compared with ECG of 13-JAN-2024 08:39, No significant change was found Referred By: Rosanne Viramontes Electronically Signed By:CHRISTEL LANCE
[2024-01-20 08:00] VITALS: BP 109/59; PULSE 80; RESP 16; TEMP 36.9; O2SAT 99
[2024-01-20] MEDS: buPROPion HCl XL 150 MG TAB.ER.24H PO (09:13)
[2024-01-20] MEDS: Naltrexone HCl 50 MG TABLET PO (09:13)
[2024-01-20] MEDS: busPIRone HCl 5 MG TABLET 15 MG PO (09:13)
[2024-01-20] MEDS: Sertraline HCL 25 MG TABLET PO (09:13)
--- NOTE | 2024-01-20 10:26 | P.PNPSI_ITS ---
Subjective Subjective Date of Service: 01/20/24 Reason For Visit: PTSD; Depression Subjective Notes: Conditional Voluntary Healthcare Proxy: No Guardianship: No Medical Problems Affecting Mental Status: No Interim History: Reports some relief of depressive sx. Reports a decrease in appetite Reports pain in shoulder, arm, elbow, top of chest-unsure etiology-ordered ibuprofen and ekg Reports atarax helps anxiety. Remains on one to one. Medication Compliance: Yes Side effects from medications: No Attending Groups: Intermittent Review of Systems Acute medical concerns: No Medical Review of Systems: unchanged Review of Systems Review of Systems pain in shoulder, arm, elbow, top of chest-unsure of etiology. States she put on a sports bra yesterday that was with discomfort and believes that may have contributed. Mental Status Exam Mental Status Exam Patient Appearance: Appropriate Patient Orientation: Person, Place, Time and Situation Level of Consciousness: Alert Patient Behavior: Good Eye Contact Mood Description: Depressed Affect Description: Flat Patient Cognition Impaired: No Ability to Follow Directions: Good Speech Pattern: Spontaneous Speech and No Speech Memory Description: Intact Hallucinations: None Perceptual Disturbances: Depersonalization and Derealization Thought Process: Rumination Thought Content: positive for Preoccupation and positive for Suicidal Ideation Depressive Symptoms: Increased Anxiety, Hopelessness, Unhappiness and Thoughts of /Suicide Judgement: Poor Diagnostics Vital Signs (24Hr): Vital Signs - 24 hr 01/19/24 22:17 01/20/24 08:00 Temperature 97.6 F 98.5 F Pulse Rate 88 80 Respiratory Rate 16 Blood Pressure 115/60 109/59 L Pulse Oximetry 97 99 Oxygen Delivery Method Room Air Room Air BMI result Body Mass Index 39.0 Labs 01/13/24 04:59 01/13/24 04:59 Medications Medications Current Medications Acetaminophen (Acetaminophen 325 Mg Tablet) 650 mg PO Q6H PRN PRN Reason: Headache/Pain Mild Scale (1-3) Al Hydroxide/Mg Hydroxide (Magnesium Hydrox/Alum Hydrox 30 Ml Oral.Susp) 30 ml PO Q6H PRN PRN Reason: Heartburn/Nausea Bupropion HCl (Bupropion Hcl Xl 150 Mg Tab.Er.24h) 150 mg PO DAILY [facility] Last Admin: 01/20/24 09:13 Dose: 150 mg Buspirone HCl (Buspirone Hcl 5 Mg Tablet) 15 mg PO DAILY [facility] Last Admin: 05/31/24 09:13 Dose: 15 mg Clonidine HCl (Clonidine Hcl 0.1 Mg Tablet) 0.1 mg PO BID PRN; Protocol PRN Reason: anxiety Hydroxyzine HCl (Hydroxyzine Hcl 25 Mg Tablet) 25 mg PO Q6H PRN PRN Reason: Anxiety Last Admin: 01/19/24 21:09 Dose: 25 mg Lorazepam (Lorazepam 0.5 Mg Tablet) 0.5 mg PO Q12H PRN PRN Reason: severe anxiety Last Admin: 01/19/24 16:56 Dose: 0.5 mg Magnesium Hydroxide (Milk Of Magnesia 30 Ml Oral.Susp) 30 ml PO DAILY PRN PRN Reason: Constipation Melatonin (Melatonin 3 Mg Tablet) 6 mg PO BEDTIME [facility] Last Admin: 01/19/24 21:09 Dose: 6 mg Naltrexone HCl (Naltrexone Hcl 50 Mg Tablet) 50 mg PO DAILY [facility] Last Admin: 01/20/24 09:13 Dose: 50 mg Pt Own (Quetiapine [ Seroquel Xr] 400 Mg Tablet Extended Release 24 Hr) 400 mg PO BEDTIME [facility] Last Admin: 01/19/24 21:08 Dose: 400 mg Olanzapine (Olanzapine 5 Mg Tablet) 5 mg PO TID PRN PRN Reason: agitation Last Admin: 01/19/24 09:33 Dose: 5 mg Sertraline HCl (Sertraline Hcl 25 Mg Tablet) 25 mg PO DAILY [facility] Last Admin: 01/20/24 09:13 Dose: 25 mg Trazodone HCl (Trazodone Hcl 50 Mg Tablet) 50 mg PO BEDTIME MRX1 PRN PRN Reason: Insomnia Last Admin: 01/19/24 21:10 Dose: 50 mg Allergies Allergies Allergy/AdvReac Type Severity Reaction Status Date / Time haloperidol [From Haldol] AdvReac Severe Involuntary Verified 01/13/24 04:27 Spasms Assessment & Plan Assessment & Plan (1) PTSD (post-traumatic stress disorder): Status: Acute Code(s): F43.10 - Post-traumatic stress disorder, unspecified (2) MDD (major depressive disorder), recurrent, severe, with psychosis: Status: Acute Code(s): F33.3 - Major depressive disorder, recurrent, severe with psychotic symptoms (3) Borderline personality disorder: Status: Acute Code(s): F60.3 - Borderline personality disorder (4) Suicidal ideation: Status: Acute Code(s): R45.851 - Suicidal ideations Plan 18 yo female, history of PTSD, Major Depression, Borderline personality disorder presents with acute SI in the context of medicine noncompliance per her report. Plan: Admit, CV, 15 minute checks- pt believes she can manage this at this time. Collateral contact with treatment team Re-establish regime-pt agrees Full milieu 01/18- Continue tx 01/19- Ibuprofen prn for shoulder pain EKG Informed Consent: understands and further education needed Reason for continued inpatient stay Substantial Risk for: rapid decompensation Time Spent With Patient Time: Total time managing care of this patient today ____ minutes.
[2024-01-20] MEDS: Acetaminophen 325 MG TABLET 650 MG PO (16:31)
[2024-01-20] MEDS: Ibuprofen 800 MG TABLET PO (18:22)
[2024-01-20 20:00] VITALS: BP 143/94; PULSE 109; RESP 18; TEMP 37.6; O2SAT 143
[2024-01-20] MEDS: hydrOXYzine HCL 25 MG TABLET PO (21:40)
[2024-01-20] MEDS: OLANZapine 5 MG TABLET PO (21:40)
[2024-01-20] MEDS: traZODone HCL 50 MG TABLET PO (21:40)
[2024-01-20] MEDS: LORazepam 0.5 MG TABLET PO (21:40)
[2024-01-20] MEDS: Melatonin 3 MG TABLET 6 MG PO (21:40)
[2024-01-21 08:00] VITALS: BP 120/65; PULSE 90; RESP 16; O2SAT 98
[2024-01-21] MEDS: buPROPion HCl XL 150 MG TAB.ER.24H PO (10:37)
[2024-01-21] MEDS: Sertraline HCL 25 MG TABLET PO (10:37)
[2024-01-21] MEDS: busPIRone HCl 5 MG TABLET 15 MG PO (10:37)
[2024-01-21] MEDS: Naltrexone HCl 50 MG TABLET PO (10:37)
[2024-01-21] MEDS: hydrOXYzine HCL 25 MG TABLET PO ×2 (14:28→21:00)
[2024-01-21] MEDS: Ibuprofen 800 MG TABLET PO (14:28)
--- NOTE | 2024-01-21 17:56 | P.PNPSI_ITS ---
Subjective Subjective Date of Service: 01/21/24 Reason For Visit: PTSD; Depression Subjective Notes: Conditional Voluntary Healthcare Proxy: No Guardianship: No Medical Problems Affecting Mental Status: No Interim History: Remains on one to one. Overall states she is feeling some mild improvement. Reports poor sleep. Will increase Trazodone, Melatonin. Medication Compliance: Yes Side effects from medications: No Attending Groups: Intermittent Review of Systems Acute medical concerns: No Medical Review of Systems: unchanged Review of Systems Review of Systems Yes all other systems are reviewed and are negative Mental Status Exam Mental Status Exam Patient Appearance: Appropriate Patient Orientation: Person, Place, Time and Situation Level of Consciousness: Alert Patient Behavior: Good Eye Contact Mood Description: Depressed Affect Description: Flat Patient Cognition Impaired: No Ability to Follow Directions: Good Speech Pattern: Spontaneous Speech and No Speech Memory Description: Intact Hallucinations: None Perceptual Disturbances: Depersonalization and Derealization Thought Process: Rumination Thought Content: positive for Preoccupation and positive for Suicidal Ideation Depressive Symptoms: Increased Anxiety, Hopelessness, Unhappiness and Thoughts of /Suicide Judgement: Poor Diagnostics Vital Signs (24Hr): Vital Signs - 24 hr 01/20/24 20:00 01/21/24 08:00 Temperature 99.6 F Pulse Rate 109 H 90 Respiratory Rate 18 16 Blood Pressure 143/94 H 120/65 Pulse Oximetry 143 H 98 Oxygen Delivery Method Room Air Room Air BMI result Body Mass Index 39.0 Labs 01/13/24 04:59 01/13/24 04:59 Medications Medications Current Medications Acetaminophen (Acetaminophen 325 Mg Tablet) 650 mg PO Q6H PRN PRN Reason: Headache/Pain Mild Scale (1-3) Last Admin: 01/20/24 16:31 Dose: 650 mg Al Hydroxide/Mg Hydroxide (Magnesium Hydrox/Alum Hydrox 30 Ml Oral.Susp) 30 ml PO Q6H PRN PRN Reason: Heartburn/Nausea Bupropion HCl (Bupropion Hcl Xl 150 Mg Tab.Er.24h) 150 mg PO DAILY [facility] Last Admin: 01/21/24 10:37 Dose: 150 mg Buspirone HCl (Buspirone Hcl 5 Mg Tablet) 15 mg PO DAILY [facility] Last Admin: 01/21/24 10:37 Dose: 15 mg Clonidine HCl (Clonidine Hcl 0.1 Mg Tablet) 0.1 mg PO BID PRN; Protocol PRN Reason: anxiety Hydroxyzine HCl (Hydroxyzine Hcl 25 Mg Tablet) 25 mg PO Q6H PRN PRN Reason: Anxiety Last Admin: 01/21/24 14:28 Dose: 25 mg Ibuprofen (Ibuprofen 800 Mg Tablet) 800 mg PO Q8H PRN PRN Reason: muscle pain Last Admin: 01/21/24 14:28 Dose: 800 mg Lorazepam (Lorazepam 0.5 Mg Tablet) 0.5 mg PO Q12H PRN PRN Reason: severe anxiety Last Admin: 01/20/24 21:40 Dose: 0.5 mg Magnesium Hydroxide (Milk Of Magnesia 30 Ml Oral.Susp) 30 ml PO DAILY PRN PRN Reason: Constipation Melatonin (Melatonin 3 Mg Tablet) 6 mg PO BEDTIME [facility] Last Admin: 01/20/24 21:40 Dose: 6 mg Naltrexone HCl (Naltrexone Hcl 50 Mg Tablet) 50 mg PO DAILY [facility] Last Admin: 01/21/24 10:37 Dose: 50 mg Pt Own (Quetiapine [ Seroquel Xr] 400 Mg Tablet Extended Release 24 Hr) 400 mg PO BEDTIME [facility] Last Admin: 01/20/24 21:39 Dose: 400 mg Olanzapine (Olanzapine 5 Mg Tablet) 5 mg PO TID PRN PRN Reason: agitation Last Admin: 01/20/24 21:40 Dose: 5 mg Sertraline HCl (Sertraline Hcl 25 Mg Tablet) 25 mg PO DAILY [facility] Last Admin: 01/21/24 10:37 Dose: 25 mg Trazodone HCl (Trazodone Hcl 50 Mg Tablet) 50 mg PO BEDTIME MRX1 PRN PRN Reason: Insomnia Last Admin: 01/20/24 21:40 Dose: 50 mg Allergies Allergies Allergy/AdvReac Type Severity Reaction Status Date / Time haloperidol [From Haldol] AdvReac Severe Involuntary Verified 01/13/24 04:27 Spasms Assessment & Plan Assessment & Plan (1) PTSD (post-traumatic stress disorder): Status: Acute Code(s): F43.10 - Post-traumatic stress disorder, unspecified (2) MDD (major depressive disorder), recurrent, severe, with psychosis: Status: Acute Code(s): F33.3 - Major depressive disorder, recurrent, severe with psychotic symptoms (3) Borderline personality disorder: Status: Acute Code(s): F60.3 - Borderline personality disorder (4) Suicidal ideation: Status: Acute Code(s): R45.851 - Suicidal ideations Plan 18 yo female, history of PTSD, Major Depression, Borderline personality disorder presents with acute SI in the context of medicine noncompliance per her report. Plan: Admit, CV, 15 minute checks- pt believes she can manage this at this time. Collateral contact with treatment team Re-establish regime-pt agrees Full milieu 01/18- Continue tx 01/20- Increase Trazodone to 100 mg HS Increase Melatonin to 9 mg HS Reason for continued inpatient stay Substantial Risk for: rapid decompensation Time Spent With Patient Time: Total time managing care of this patient today ____ minutes.
[2024-01-21 20:00] VITALS: BP 137/90; PULSE 110; RESP 18; TEMP 36.9; O2SAT 99
[2024-01-21] MEDS: Melatonin 3 MG TABLET 9 MG PO (20:59)
[2024-01-21] MEDS: traZODone HCL 100 MG TABLET PO (20:59)
[2024-01-21] MEDS: LORazepam 0.5 MG TABLET PO (21:00)
[2024-01-21] MEDS: OLANZapine 5 MG TABLET PO (21:00)
[2024-01-22 09:08] VITALS: BP 112/60; PULSE 83; RESP 16; TEMP 37.2; O2SAT 99
[2024-01-22] MEDS: Sertraline HCL 25 MG TABLET PO (09:09)
[2024-01-22] MEDS: busPIRone HCl 5 MG TABLET 15 MG PO (09:09)
[2024-01-22] MEDS: Naltrexone HCl 50 MG TABLET PO (09:10)
[2024-01-22] MEDS: buPROPion HCl XL 150 MG TAB.ER.24H PO (09:10)
--- NOTE | 2024-01-22 10:59 | P.PNPSI_ITS ---
Subjective Subjective Date of Service: 01/22/24 Reason For Visit: PTSD; Depression Subjective Notes: Conditional Voluntary Healthcare Proxy: No Guardianship: No Medical Problems Affecting Mental Status: No Interim History: Reports improvement in sleep. Slept late. Will adjust timing of HS meds to 2100 Medication Compliance: Yes Side effects from medications: Yes Attending Groups: Intermittent Review of Systems Acute medical concerns: No Medical Review of Systems: unchanged Review of Systems Review of Systems Yes all other systems are reviewed and are negative Mental Status Exam Mental Status Exam Patient Appearance: Appropriate Patient Orientation: Person, Place, Time and Situation Level of Consciousness: Alert Patient Behavior: Good Eye Contact Mood Description: Depressed Affect Description: Flat Patient Cognition Impaired: No Ability to Follow Directions: Good Speech Pattern: Spontaneous Speech and No Speech Memory Description: Intact Hallucinations: None Perceptual Disturbances: Depersonalization and Derealization Thought Process: Rumination Thought Content: positive for Preoccupation and positive for Suicidal Ideation Depressive Symptoms: Increased Anxiety, Hopelessness, Unhappiness and Thoughts of /Suicide Judgement: Poor Diagnostics Vital Signs (24Hr): Vital Signs - 24 hr 01/21/24 20:00 01/22/24 09:08 Temperature 98.4 F 98.9 F Pulse Rate 110 H 83 Respiratory Rate 18 16 Blood Pressure 137/90 H 112/60 Pulse Oximetry 99 99 Oxygen Delivery Method Room Air Room Air BMI result Body Mass Index 39.0 Labs 01/13/24 04:59 01/13/24 04:59 Medications Medications Current Medications Acetaminophen (Acetaminophen 325 Mg Tablet) 650 mg PO Q6H PRN PRN Reason: Headache/Pain Mild Scale (1-3) Last Admin: 01/20/24 16:31 Dose: 650 mg Al Hydroxide/Mg Hydroxide (Magnesium Hydrox/Alum Hydrox 30 Ml Oral.Susp) 30 ml PO Q6H PRN PRN Reason: Heartburn/Nausea Bupropion HCl (Bupropion Hcl Xl 150 Mg Tab.Er.24h) 150 mg PO DAILY [facility] Last Admin: 01/22/24 09:10 Dose: 150 mg Buspirone HCl (Buspirone Hcl 5 Mg Tablet) 15 mg PO DAILY [facility] Last Admin: 01/22/24 09:09 Dose: 15 mg Clonidine HCl (Clonidine Hcl 0.1 Mg Tablet) 0.1 mg PO BID PRN; Protocol PRN Reason: anxiety Hydroxyzine HCl (Hydroxyzine Hcl 25 Mg Tablet) 25 mg PO Q6H PRN PRN Reason: Anxiety Last Admin: 01/21/24 21:00 Dose: 25 mg Ibuprofen (Ibuprofen 800 Mg Tablet) 800 mg PO Q8H PRN PRN Reason: muscle pain Last Admin: 01/21/24 14:28 Dose: 800 mg Lorazepam (Lorazepam 0.5 Mg Tablet) 0.5 mg PO Q12H PRN PRN Reason: severe anxiety Last Admin: 01/21/24 21:00 Dose: 0.5 mg Magnesium Hydroxide (Milk Of Magnesia 30 Ml Oral.Susp) 30 ml PO DAILY PRN PRN Reason: Constipation Melatonin (Melatonin 3 Mg Tablet) 9 mg PO BEDTIME [facility] Last Admin: 01/21/24 20:59 Dose: 9 mg Naltrexone HCl (Naltrexone Hcl 50 Mg Tablet) 50 mg PO DAILY [facility] Last Admin: 01/22/24 09:10 Dose: 50 mg Pt Own (Quetiapine [ Seroquel Xr] 400 Mg Tablet Extended Release 24 Hr) 400 mg PO BEDTIME [facility] Last Admin: 01/21/24 20:59 Dose: 400 mg Olanzapine (Olanzapine 5 Mg Tablet) 5 mg PO TID PRN PRN Reason: agitation Last Admin: 01/21/24 21:00 Dose: 5 mg Sertraline HCl (Sertraline Hcl 25 Mg Tablet) 25 mg PO DAILY [facility] Last Admin: 01/22/24 09:09 Dose: 25 mg Trazodone HCl (Trazodone Hcl 100 Mg Tablet) 100 mg PO BEDTIME [facility] Last Admin: 01/21/24 20:59 Dose: 100 mg Allergies Allergies Allergy/AdvReac Type Severity Reaction Status Date / Time haloperidol [From Haldol] AdvReac Severe Involuntary Verified 01/13/24 04:27 Spasms Assessment & Plan Assessment & Plan (1) PTSD (post-traumatic stress disorder): Status: Acute Code(s): F43.10 - Post-traumatic stress disorder, unspecified (2) MDD (major depressive disorder), recurrent, severe, with psychosis: Status: Acute Code(s): F33.3 - Major depressive disorder, recurrent, severe with psychotic symptoms (3) Borderline personality disorder: Status: Acute Code(s): F60.3 - Borderline personality disorder (4) Suicidal ideation: Status: Acute Code(s): R45.851 - Suicidal ideations Plan 18 yo female, history of PTSD, Major Depression, Borderline personality disorder presents with acute SI in the context of medicine noncompliance per her report. Plan: Admit, CV, 15 minute checks- pt believes she can manage this at this time. Collateral contact with treatment team Re-establish regime-pt agrees Full milieu 01/18- Continue tx 01/19- Ibuprofen prn for shoulder pain EKG 01/21- Change timing of Trazodone and Melatonin to 2100 Reason for continued inpatient stay Substantial Risk for: rapid decompensation Time Spent With Patient Time: Total time managing care of this patient today ____ minutes.
[2024-01-22 19:59] VITALS: BP 123/81; PULSE 82; RESP 18; TEMP 36.9; O2SAT 100
[2024-01-22] MEDS: Melatonin 3 MG TABLET 9 MG PO (21:01)
[2024-01-22] MEDS: traZODone HCL 100 MG TABLET PO (21:01)
--- NOTE | 2024-01-23 09:45 | P.PNPSI_ITS ---
Subjective Subjective Date of Service: 01/23/24 Reason For Visit: PTSD; Depression Subjective Notes: Conditional Voluntary Interim History: Organized, communicating in writing today with calendar to track good days, journal, dry erase board. Reports some panic sx a few hours into sleep along with nightmares. Reports overall improvement. Later in the day, reports to team in writing I want to hurt myself and maybe others. I don't know if I'm going to give in soon, I guess we will see what happens. I don't like today, I don't like this, I don't know if I can stay safe today. I don't want to, but they don't like it when I don't listen. Medication Compliance: Yes Side effects from medications: No Attending Groups: Yes Review of Systems Acute medical concerns: No Medical Review of Systems: unchanged Review of Systems Review of Systems Yes all other systems are reviewed and are negative Mental Status Exam Mental Status Exam Patient Appearance: Appropriate Patient Orientation: Person, Place, Time and Situation Level of Consciousness: Alert Patient Behavior: Good Eye Contact Mood Description: Depressed Affect Description: Flat Patient Cognition Impaired: No Ability to Follow Directions: Good Speech Pattern: Spontaneous Speech and No Speech Memory Description: Intact Hallucinations: None Perceptual Disturbances: Depersonalization and Derealization Thought Process: Rumination Thought Content: positive for Preoccupation and positive for Suicidal Ideation Depressive Symptoms: Increased Anxiety, Hopelessness, Unhappiness and Thoughts of /Suicide Judgement: Poor Diagnostics Vital Signs (24Hr): Vital Signs - 24 hr 01/22/24 19:59 Temperature 98.5 F Pulse Rate 82 Respiratory Rate 18 Blood Pressure 123/81 Pulse Oximetry 100 Oxygen Delivery Method Room Air BMI result Body Mass Index 39.0 Labs 01/13/24 04:59 01/13/24 04:59 Medications Medications Current Medications Acetaminophen (Acetaminophen 325 Mg Tablet) 650 mg PO Q6H PRN PRN Reason: Headache/Pain Mild Scale (1-3) Last Admin: 01/20/24 16:31 Dose: 650 mg Al Hydroxide/Mg Hydroxide (Magnesium Hydrox/Alum Hydrox 30 Ml Oral.Susp) 30 ml PO Q6H PRN PRN Reason: Heartburn/Nausea Bupropion HCl (Bupropion Hcl Xl 150 Mg Tab.Er.24h) 150 mg PO DAILY [facility] Last Admin: 01/22/24 09:10 Dose: 150 mg Buspirone HCl (Buspirone Hcl 5 Mg Tablet) 15 mg PO DAILY [facility] Last Admin: 01/22/24 09:09 Dose: 15 mg Clonidine HCl (Clonidine Hcl 0.1 Mg Tablet) 0.1 mg PO BID PRN; Protocol PRN Reason: anxiety Hydroxyzine HCl (Hydroxyzine Hcl 25 Mg Tablet) 25 mg PO Q6H PRN PRN Reason: Anxiety Last Admin: 01/21/24 21:00 Dose: 25 mg Ibuprofen (Ibuprofen 800 Mg Tablet) 800 mg PO Q8H PRN PRN Reason: muscle pain Last Admin: 01/21/24 14:28 Dose: 800 mg Lorazepam (Lorazepam 0.5 Mg Tablet) 0.5 mg PO Q12H PRN PRN Reason: severe anxiety Last Admin: 01/21/24 21:00 Dose: 0.5 mg Magnesium Hydroxide (Milk Of Magnesia 30 Ml Oral.Susp) 30 ml PO DAILY PRN PRN Reason: Constipation Melatonin (Melatonin 3 Mg Tablet) 9 mg PO 2100 [facility] Last Admin: 01/22/24 21:01 Dose: 9 mg Naltrexone HCl (Naltrexone Hcl 50 Mg Tablet) 50 mg PO DAILY [facility] Last Admin: 01/22/24 09:10 Dose: 50 mg Pt Own (Quetiapine [ Seroquel Xr] 400 Mg Tablet Extended Release 24 Hr) 400 mg PO BEDTIME [facility] Last Admin: 01/22/24 21:01 Dose: 400 mg Olanzapine (Olanzapine 5 Mg Tablet) 5 mg PO TID PRN PRN Reason: agitation Last Admin: 01/21/24 21:00 Dose: 5 mg Sertraline HCl (Sertraline Hcl 25 Mg Tablet) 25 mg PO DAILY [facility] Last Admin: 01/22/24 09:09 Dose: 25 mg Trazodone HCl (Trazodone Hcl 100 Mg Tablet) 100 mg PO 2100 [facility] Last Admin: 01/22/24 21:01 Dose: 100 mg Allergies Allergies Allergy/AdvReac Type Severity Reaction Status Date / Time haloperidol [From Haldol] AdvReac Severe Involuntary Verified 01/13/24 04:27 Spasms Assessment & Plan Assessment & Plan (1) PTSD (post-traumatic stress disorder): Status: Acute Code(s): F43.10 - Post-traumatic stress disorder, unspecified (2) MDD (major depressive disorder), recurrent, severe, with psychosis: Status: Acute Code(s): F33.3 - Major depressive disorder, recurrent, severe with psychotic symptoms (3) Borderline personality disorder: Status: Acute Code(s): F60.3 - Borderline personality disorder (4) Suicidal ideation: Status: Acute Code(s): R45.851 - Suicidal ideations Plan 18 yo female, history of PTSD, Major Depression, Borderline personality disorder presents with acute SI in the context of medicine noncompliance per her report. Plan: Admit, CV, 15 minute checks- pt believes she can manage this at this time. Collateral contact with treatment team Re-establish regime-pt agrees Full milieu 01/18- Continue tx 01/19- Ibuprofen prn for shoulder pain EKG 01/21- Change timing of Trazodone and Melatonin to 2100 01/22- Decrease Sertraline to 12.5 mg daily Decrease Melatonin to 6 mg hs Prazosin 1 mg HS trial Reason for continued inpatient stay Substantial Risk for: rapid decompensation Time Spent With Patient Time: Total time managing care of this patient today ____ minutes.
[2024-01-23] MEDS: busPIRone HCl 5 MG TABLET 15 MG PO (11:14)
[2024-01-23] MEDS: buPROPion HCl XL 150 MG TAB.ER.24H PO (11:14)
[2024-01-23] MEDS: Naltrexone HCl 50 MG TABLET PO (11:15)
[2024-01-23] MEDS: Sertraline HCL 25 MG TABLET PO (11:15)
[2024-01-23 13:42] VITALS: BP 128/74; PULSE 98; RESP 20; TEMP 36.3; O2SAT 97
[2024-01-23 21:40] VITALS: BP 121/62; PULSE 80; TEMP 37.1
[2024-01-23] MEDS: Prazosin HCL 1 MG CAPSULE PO (21:46)
[2024-01-23] MEDS: Melatonin 3 MG TABLET 6 MG PO (21:47)
[2024-01-23] MEDS: traZODone HCL 100 MG TABLET PO (21:47)
[2024-01-24 08:00] VITALS: BP 110/76; PULSE 72; RESP 18; TEMP 36.9; O2SAT 96
[2024-01-24] MEDS: busPIRone HCl 5 MG TABLET 15 MG PO (12:40)
[2024-01-24] MEDS: buPROPion HCl XL 150 MG TAB.ER.24H PO (12:41)
[2024-01-24] MEDS: Naltrexone HCl 50 MG TABLET PO (12:41)
[2024-01-24] MEDS: Sertraline HCL 25 MG TABLET 12.5 MG PO (12:41)
--- NOTE | 2024-01-24 16:28 | P.PNPSI_ITS ---
Subjective Subjective Date of Service: 01/24/24 Reason For Visit: PTSD; Depression Subjective Notes: Conditional Voluntary Interim History: Continues on one to one. Reports no nightmares last night, however reports ability to dream. Will continue Prazosin trial this evening. Medication Compliance: Yes Side effects from medications: No Attending Groups: Yes Review of Systems Acute medical concerns: No Medical Review of Systems: unchanged Review of Systems Review of Systems Yes all other systems are reviewed and are negative Mental Status Exam Mental Status Exam Patient Appearance: Appropriate Patient Orientation: Person, Place, Time and Situation Level of Consciousness: Alert Patient Behavior: Good Eye Contact Mood Description: Depressed Affect Description: Flat Patient Cognition Impaired: No Ability to Follow Directions: Good Speech Pattern: Spontaneous Speech and No Speech Memory Description: Intact Hallucinations: None Perceptual Disturbances: Depersonalization and Derealization Thought Process: Rumination Thought Content: positive for Preoccupation and positive for Suicidal Ideation Depressive Symptoms: Increased Anxiety, Hopelessness, Unhappiness and Thoughts of /Suicide Judgement: Poor Diagnostics Vital Signs (24Hr): Vital Signs - 24 hr 01/23/24 21:40 01/24/24 08:00 Temperature 98.7 F 98.5 F Pulse Rate 80 72 Respiratory Rate 18 Blood Pressure 121/62 110/76 Pulse Oximetry 96 Oxygen Delivery Method Room Air BMI result Body Mass Index 39.0 Labs 01/13/24 04:59 01/13/24 04:59 Medications Medications Current Medications Acetaminophen (Acetaminophen 325 Mg Tablet) 650 mg PO Q6H PRN PRN Reason: Headache/Pain Mild Scale (1-3) Last Admin: 01/20/24 16:31 Dose: 650 mg Al Hydroxide/Mg Hydroxide (Magnesium Hydrox/Alum Hydrox 30 Ml Oral.Susp) 30 ml PO Q6H PRN PRN Reason: Heartburn/Nausea Bupropion HCl (Bupropion Hcl Xl 150 Mg Tab.Er.24h) 150 mg PO DAILY MARY Last Admin: 01/24/24 12:41 Dose: 150 mg Buspirone HCl (Buspirone Hcl 5 Mg Tablet) 15 mg PO DAILY MARY Last Admin: 01/24/24 12:40 Dose: 15 mg Clonidine HCl (Clonidine Hcl 0.1 Mg Tablet) 0.1 mg PO BID PRN; Protocol PRN Reason: anxiety Hydroxyzine HCl (Hydroxyzine Hcl 25 Mg Tablet) 25 mg PO Q6H PRN PRN Reason: Anxiety Last Admin: 01/21/24 21:00 Dose: 25 mg Ibuprofen (Ibuprofen 800 Mg Tablet) 800 mg PO Q8H PRN PRN Reason: muscle pain Last Admin: 01/21/24 14:28 Dose: 800 mg Lorazepam (Lorazepam 0.5 Mg Tablet) 0.5 mg PO Q12H PRN PRN Reason: severe anxiety Last Admin: 01/21/24 21:00 Dose: 0.5 mg Magnesium Hydroxide (Milk Of Magnesia 30 Ml Oral.Susp) 30 ml PO DAILY PRN PRN Reason: Constipation Melatonin (Melatonin 3 Mg Tablet) 6 mg PO 2100 [facility] Last Admin: 01/23/24 21:47 Dose: 6 mg Naltrexone HCl (Naltrexone Hcl 50 Mg Tablet) 50 mg PO DAILY [facility] Last Admin: 01/24/24 12:41 Dose: 50 mg Pt Own (Quetiapine [ Seroquel Xr] 400 Mg Tablet Extended Release 24 Hr) 400 mg PO BEDTIME MARY Last Admin: 01/23/24 21:51 Dose: 400 mg Olanzapine (Olanzapine 5 Mg Tablet) 5 mg PO TID PRN PRN Reason: agitation Last Admin: 01/21/24 21:00 Dose: 5 mg Prazosin HCl (Prazosin Hcl 1 Mg Capsule) 1 mg PO BEDTIME MARY; Protocol Last Admin: 01/23/24 21:46 Dose: 1 mg Sertraline HCl (Sertraline Hcl 25 Mg Tablet) 12.5 mg PO DAILY [facility] Last Admin: 01/24/24 12:41 Dose: 12.5 mg Trazodone HCl (Trazodone Hcl 100 Mg Tablet) 100 mg PO 2100 [facility] Last Admin: 01/23/24 21:47 Dose: 100 mg Allergies Allergies Allergy/AdvReac Type Severity Reaction Status Date / Time haloperidol [From Haldol] AdvReac Severe Involuntary Verified 01/13/24 04:27 Spasms Assessment & Plan Assessment & Plan (1) PTSD (post-traumatic stress disorder): Status: Acute Code(s): F43.10 - Post-traumatic stress disorder, unspecified (2) MDD (major depressive disorder), recurrent, severe, with psychosis: Status: Acute Code(s): F33.3 - Major depressive disorder, recurrent, severe with psychotic symptoms (3) Borderline personality disorder: Status: Acute Code(s): F60.3 - Borderline personality disorder (4) Suicidal ideation: Status: Acute Code(s): R45.851 - Suicidal ideations Plan 18 yo female, history of PTSD, Major Depression, Borderline personality disorder presents with acute SI in the context of medicine noncompliance per her report. Plan: Admit, CV, 15 minute checks- pt believes she can manage this at this time. Collateral contact with treatment team Re-establish regime-pt agrees Full milieu 01/18- Continue tx 01/19- Ibuprofen prn for shoulder pain EKG 01/21- Change timing of Trazodone and Melatonin to 2100 01/23: Continue tx Reason for continued inpatient stay Substantial Risk for: rapid decompensation Time Spent With Patient Time: Total time managing care of this patient today ____ minutes.
[2024-01-24 21:10] VITALS: BP 123/78; PULSE 96; RESP 16; TEMP 37.1; O2SAT 97
[2024-01-24] MEDS: traZODone HCL 100 MG TABLET PO (21:31)
[2024-01-24] MEDS: Prazosin HCL 1 MG CAPSULE PO (21:31)
[2024-01-24] MEDS: Melatonin 3 MG TABLET 6 MG PO (21:31)
[2024-01-25 09:30] VITALS: BP 118/78; PULSE 92; RESP 16; TEMP 36.3; O2SAT 99
[2024-01-25] MEDS: Naltrexone HCl 50 MG TABLET PO (09:50)
[2024-01-25] MEDS: hydrOXYzine HCL 25 MG TABLET PO ×2 (09:51→21:06)
[2024-01-25] MEDS: buPROPion HCl XL 150 MG TAB.ER.24H PO (09:51)
[2024-01-25] MEDS: busPIRone HCl 5 MG TABLET 15 MG PO (09:51)
[2024-01-25] MEDS: Sertraline HCL 25 MG TABLET 12.5 MG PO (09:51)
--- NOTE | 2024-01-25 13:39 | HO.PSYCHPN ---
Subjective Subjective Date of Service: 01/25/24 Reason For Visit: PTSD; Depression Subjective Notes: Conditional Voluntary Interim History: Reviewed with Dr. Varghese. Pt continues on 1:1. Pt observed laying in bed. Pt presents guarded with T/W. Refusing to speak to T/W but would answer questions by nodding head. Pt nodding head when asked if she was feeling anxious but declined to go into detail. She shook head no, when asked about SI/HI. When asked if pt had any quetions or needed anything, pt shook head side to side. She was encouraged to speak with staff if needed anything. Medication Compliance: Yes Side effects from medications: No Review of Systems Constitutional: Reports as per HPI Eyes: Reports as per HPI Reports as per HPI Cardiovascular: Reports as per HPI Respiratory: Reports as per HPI Gastrointestinal: Reports as per HPI Genitourinary: Reports as per HPI Musculoskeletal: Reports as per HPI Skin/Breast: Reports as per HPI Reports as per HPI Psychiatric: Reports as per HPI Endocrine: Reports as per HPI Hematologic/Lymphatic: Reports as per HPI Allergic/Immunologic: Reports as per HPI Mental Status Exam Mental Status Exam Narrative: unable to assess full mental status d/t pt refusing to speak to T/W. Patient Appearance: Appropriate Level of Consciousness: Awake Patient Behavior: Guarded and Anxious Behavior Comments: refused to speak to T/W. Mood Description: Calm Affect Description: Calm Diagnostics Vital Signs (24Hr): Vital Signs - 24 hr 01/24/24 21:10 01/25/24 09:30 Temperature 98.7 F 97.4 F Pulse Rate 96 92 Respiratory Rate 16 16 Blood Pressure 123/78 118/78 Pulse Oximetry 97 99 Oxygen Delivery Method Room Air Room Air BMI result Body Mass Index 39.0 Labs 01/13/24 04:59 01/13/24 04:59 Medications Medications Current Medications Acetaminophen (Acetaminophen 325 Mg Tablet) 650 mg PO Q6H PRN PRN Reason: Headache/Pain Mild Scale (1-3) Last Admin: 01/20/24 16:31 Dose: 650 mg Al Hydroxide/Mg Hydroxide (Magnesium Hydrox/Alum Hydrox 30 Ml Oral.Susp) 30 ml PO Q6H PRN PRN Reason: Heartburn/Nausea Bupropion HCl (Bupropion Hcl Xl 150 Mg Tab.Er.24h) 150 mg PO DAILY MARY Last Admin: 01/25/24 09:51 Dose: 150 mg Buspirone HCl (Buspirone Hcl 5 Mg Tablet) 15 mg PO DAILY MARY Last Admin: 01/25/24 09:51 Dose: 15 mg Clonidine HCl (Clonidine Hcl 0.1 Mg Tablet) 0.1 mg PO BID PRN; Protocol PRN Reason: anxiety Hydroxyzine HCl (Hydroxyzine Hcl 25 Mg Tablet) 25 mg PO Q6H PRN PRN Reason: Anxiety Last Admin: 01/25/24 09:51 Dose: 25 mg Ibuprofen (Ibuprofen 800 Mg Tablet) 800 mg PO Q8H PRN PRN Reason: muscle pain Last Admin: 01/21/24 14:28 Dose: 800 mg Lorazepam (Lorazepam 0.5 Mg Tablet) 0.5 mg PO Q12H PRN PRN Reason: severe anxiety Last Admin: 01/21/24 21:00 Dose: 0.5 mg Magnesium Hydroxide (Milk Of Magnesia 30 Ml Oral.Susp) 30 ml PO DAILY PRN PRN Reason: Constipation Melatonin (Melatonin 3 Mg Tablet) 6 mg PO 2100 [facility] Last Admin: 01/24/24 21:31 Dose: 6 mg Naltrexone HCl (Naltrexone Hcl 50 Mg Tablet) 50 mg PO DAILY MARY Last Admin: 01/25/24 09:50 Dose: 50 mg Pt Own (Quetiapine [ Seroquel Xr] 400 Mg Tablet Extended Release 24 Hr) 400 mg PO BEDTIME MARY Last Admin: 01/24/24 21:31 Dose: 400 mg Olanzapine (Olanzapine 5 Mg Tablet) 5 mg PO TID PRN PRN Reason: agitation Last Admin: 01/21/24 21:00 Dose: 5 mg Prazosin HCl (Prazosin Hcl 1 Mg Capsule) 1 mg PO BEDTIME MARY; Protocol Last Admin: 01/24/24 21:31 Dose: 1 mg Sertraline HCl (Sertraline Hcl 25 Mg Tablet) 12.5 mg PO DAILY [facility] Last Admin: 01/25/24 09:51 Dose: 12.5 mg Trazodone HCl (Trazodone Hcl 100 Mg Tablet) 100 mg PO 2100 [facility] Last Admin: 01/24/24 21:31 Dose: 100 mg Allergies Allergies Allergy/AdvReac Type Severity Reaction Status Date / Time haloperidol [From Haldol] AdvReac Severe Involuntary Verified 01/13/24 04:27 Spasms Assessment & Plan Assessment & Plan (1) PTSD (post-traumatic stress disorder): Status: Acute Code(s): F43.10 - Post-traumatic stress disorder, unspecified (2) MDD (major depressive disorder), recurrent, severe, with psychosis: Status: Acute Code(s): F33.3 - Major depressive disorder, recurrent, severe with psychotic symptoms (3) Borderline personality disorder: Status: Acute Code(s): F60.3 - Borderline personality disorder (4) Suicidal ideation: Status: Acute Code(s): R45.851 - Suicidal ideations Plan 18 yo female, history of PTSD, Major Depression, Borderline personality disorder presents with acute SI in the context of medicine noncompliance per her report. Plan: Admit, CV, 15 minute checks- pt believes she can manage this at this time. Collateral contact with treatment team Re-establish regime-pt agrees Full milieu 01/18- Continue tx 01/19- Ibuprofen prn for shoulder pain EKG 01/21- Change timing of Trazodone and Melatonin to 2100 01/23: Continue tx 01/24: Pt continues on 1:1. Pt observed laying in bed. Pt presents guarded with T/W. Refusing to speak to T/W but would answer questions by nodding head. Pt nodding head when asked if she was feeling anxious but declined to go into detail. She shook head no, when asked about SI/HI. When asked if pt had any quetions or needed anything, pt shook head side to side. She was encouraged to speak with staff if needed anything. Patient educated on: diagnosis and medication risk/benefits Reason for continued inpatient stay Substantial Risk for: med/psych decompensation Time Spent With Patient Time: Total time managing care of this patient today _20___ minutes.
[2024-01-25 20:00] VITALS: BP 112/60; PULSE 82; RESP 18; TEMP 36.9; O2SAT 99
[2024-01-25 21:05] VITALS: BP 112/60
[2024-01-25] MEDS: Prazosin HCL 1 MG CAPSULE 2 MG PO (21:05)
[2024-01-25] MEDS: Melatonin 3 MG TABLET 6 MG PO (21:05)
[2024-01-25] MEDS: traZODone HCL 100 MG TABLET PO (21:06)
[2024-01-25 21:07] VITALS: BP 112/60
[2024-01-25] MEDS: cloNIDine HCL 0.1 MG TABLET PO (21:07)
[2024-01-26 08:00] VITALS: BP 104/59; PULSE 77; RESP 16; TEMP 36.9; O2SAT 99
[2024-01-26] MEDS: Naltrexone HCl 50 MG TABLET PO (09:13)
[2024-01-26] MEDS: buPROPion HCl XL 150 MG TAB.ER.24H PO (09:13)
[2024-01-26] MEDS: Sertraline HCL 25 MG TABLET 12.5 MG PO (09:14)
[2024-01-26] MEDS: busPIRone HCl 5 MG TABLET 15 MG PO (09:14)
--- NOTE | 2024-01-26 09:23 | P.PNPSI_ITS ---
Subjective Subjective Date of Service: 01/26/24 Reason For Visit: PTSD; Depression Interim History: met with patient;discussed with team Patient reports feeling little better today and in better self-control; patient has been going to groups and staff reports no self-harming behaviors 2nd shift, compliant with behavioral plan. Patient asks if she can come off one-to-one; discussed this with her and agreed to changing it to close observation and if all goes well to eventually progressed to coming off one-to-one. Patient said she continues to have nightmares and asked if prazosin could be increased. Mental Status Exam Mental Status Exam Narrative: Pt is alert and oriented; behavior is more cooperative, or friendly and calm; patient is not in distress; dressed in casual attire with good hygiene; mood is described as okay and affect congruent more calm; eye contact appropriate; Speech is a little soft, a little slow; no psychomotor agitation/retardation present; thought process is goal directed; Thought content is on tx, behavioral control; otherwise pertinent to relevant topics and without any delusional content, paranoid ideations or grandiosity; currently no self-harming urges; denies any SI/HI. There is no evidence of perceptual disturbance. Patients insight and judgment improving Diagnostics Vital Signs (24Hr): Vital Signs - 24 hr 01/25/24 09:30 01/25/24 20:00 01/25/24 21:05 Temperature 97.4 F 98.5 F Pulse Rate 92 82 Respiratory Rate 16 18 Blood Pressure 118/78 112/60 112/60 Pulse Oximetry 99 99 Oxygen Delivery Method Room Air Room Air 01/25/24 21:07 01/26/24 08:00 Temperature 98.5 F Pulse Rate 77 Respiratory Rate 16 Blood Pressure 112/60 104/59 L Pulse Oximetry 99 Oxygen Delivery Method Room Air BMI result Body Mass Index 39.0 Labs 01/13/24 04:59 01/13/24 04:59 Medications Medications Current Medications Acetaminophen (Acetaminophen 325 Mg Tablet) 650 mg PO Q6H PRN PRN Reason: Headache/Pain Mild Scale (1-3) Last Admin: 01/20/24 16:31 Dose: 650 mg Al Hydroxide/Mg Hydroxide (Magnesium Hydrox/Alum Hydrox 30 Ml Oral.Susp) 30 ml PO Q6H PRN PRN Reason: Heartburn/Nausea Bupropion HCl (Bupropion Hcl Xl 150 Mg Tab.Er.24h) 150 mg PO DAILY MARY Last Admin: 01/26/24 09:13 Dose: 150 mg Buspirone HCl (Buspirone Hcl 5 Mg Tablet) 15 mg PO DAILY MARY Last Admin: 01/26/24 09:14 Dose: 15 mg Clonidine HCl (Clonidine Hcl 0.1 Mg Tablet) 0.1 mg PO BID PRN; Protocol PRN Reason: anxiety Last Admin: 01/25/24 21:07 Dose: 0.1 mg Hydroxyzine HCl (Hydroxyzine Hcl 25 Mg Tablet) 25 mg PO Q6H PRN PRN Reason: Anxiety Last Admin: 01/25/24 21:06 Dose: 25 mg Ibuprofen (Ibuprofen 800 Mg Tablet) 800 mg PO Q8H PRN PRN Reason: muscle pain Last Admin: 01/21/24 14:28 Dose: 800 mg Lorazepam (Lorazepam 0.5 Mg Tablet) 0.5 mg PO Q12H PRN PRN Reason: severe anxiety Last Admin: 01/21/24 21:00 Dose: 0.5 mg Magnesium Hydroxide (Milk Of Magnesia 30 Ml Oral.Susp) 30 ml PO DAILY PRN PRN Reason: Constipation Melatonin (Melatonin 3 Mg Tablet) 6 mg PO 2100 [facility] Last Admin: 01/25/24 21:05 Dose: 6 mg Naltrexone HCl (Naltrexone Hcl 50 Mg Tablet) 50 mg PO DAILY [facility] Last Admin: 01/26/24 09:13 Dose: 50 mg Pt Own (Quetiapine [ Seroquel Xr] 400 Mg Tablet Extended Release 24 Hr) 400 mg PO BEDTIME MARY Last Admin: 01/25/24 21:06 Dose: 400 mg Olanzapine (Olanzapine 5 Mg Tablet) 5 mg PO TID PRN PRN Reason: agitation Last Admin: 01/21/24 21:00 Dose: 5 mg Prazosin HCl (Prazosin Hcl 1 Mg Capsule) 2 mg PO BEDTIME [facility]; Protocol Last Admin: 01/25/24 21:05 Dose: 2 mg Sertraline HCl (Sertraline Hcl 25 Mg Tablet) 12.5 mg PO DAILY [facility] Last Admin: 01/26/24 09:14 Dose: 12.5 mg Trazodone HCl (Trazodone Hcl 100 Mg Tablet) 100 mg PO 2100 [facility] Last Admin: 01/25/24 21:06 Dose: 100 mg Allergies Allergies Allergy/AdvReac Type Severity Reaction Status Date / Time haloperidol [From Haldol] AdvReac Severe Involuntary Verified 01/13/24 04:27 Spasms Assessment & Plan Assessment & Plan (1) PTSD (post-traumatic stress disorder): Status: Acute Code(s): F43.10 - Post-traumatic stress disorder, unspecified (2) MDD (major depressive disorder), recurrent, severe, with psychosis: Status: Acute Code(s): F33.3 - Major depressive disorder, recurrent, severe with psychotic symptoms (3) Borderline personality disorder: Status: Acute Code(s): F60.3 - Borderline personality disorder (4) Suicidal ideation: Status: Acute Code(s): R45.851 - Suicidal ideations Plan 18 yo female, history of PTSD, Major Depression, Borderline personality disorder presents with acute SI in the context of medicine noncompliance per her report. Plan: Admit, CV, 15 minute checks- pt believes she can manage this at this time. Collateral contact with treatment team Re-establish regime-pt agrees Full milieu 01/18- Continue tx 01/19- Ibuprofen prn for shoulder pain EKG 01/21- Change timing of Trazodone and Melatonin to 2100 01/23: Continue tx 01/24: Pt continues on 1:1. Pt observed laying in bed. Pt presents guarded with T/W. Refusing to speak to T/W but would answer questions by nodding head. Pt nodding head when asked if she was feeling anxious but declined to go into detail. She shook head no, when asked about SI/HI. When asked if pt had any quetions or needed anything, pt shook head side to side. She was encouraged to speak with staff if needed anything. 01/25 Patient reports feeling little better today and in better self-control; patient has been going to groups and staff reports no self-harming behaviors 2nd shift, compliant with behavioral plan. Patient asks if she can come off one-to-one; discussed this with her and agreed to changing it to close observation and if all goes well to eventually progressed to coming off one-to-one. Patient said she continues to have nightmares and asked if prazosin could be increased. Plan: Switch to close arbs increased prazosin to 3mg Patient educated on: diagnosis, medication risk/benefits and therapeutic strategies Informed Consent: understands Reason for continued inpatient stay Substantial Risk for: med/psych decompensation Time Spent With Patient Time: Total time managing care of this patient today ____ minutes.
[2024-01-26 14:50] VITALS: BMI 38.3
[2024-01-26 19:45] VITALS: BP 121/68
[2024-01-26] MEDS: Prazosin HCL 1 MG CAPSULE 3 MG PO (19:45)
[2024-01-26] MEDS: Melatonin 3 MG TABLET 6 MG PO (19:45)
[2024-01-26] MEDS: traZODone HCL 100 MG TABLET PO (19:45)
[2024-01-26 19:50] VITALS: BP 121/68; PULSE 88; RESP 16; TEMP 37.1; O2SAT 97
[2024-01-27] MEDS: busPIRone HCl 5 MG TABLET 15 MG PO (10:12)
[2024-01-27] MEDS: Naltrexone HCl 50 MG TABLET PO (10:12)
[2024-01-27] MEDS: Sertraline HCL 25 MG TABLET 12.5 MG PO (10:12)
[2024-01-27] MEDS: buPROPion HCl XL 150 MG TAB.ER.24H PO (10:12)
[2024-01-27 11:03] VITALS: BP 102/55; PULSE 88; RESP 18; O2SAT 98
--- NOTE | 2024-01-27 15:24 | HO.PSYCHPN ---
Subjective Subjective Date of Service: 01/27/24 Reason For Visit: PTSD; Depression Subjective Notes: Conditional Voluntary Interim History: Reviewed with Dr. Varghese. Active on unit, continues on 1:1, attending groups. Pt reports feeling good for the most part . She reports sleeping well last night. Pt stated, I slept more than I have in awhile. I feel like I'm getting a little better . Pt denies SI/HI. Pt reports auditory hallucinations of that are telling me to harm myself and other people, like that patient Jan . Pt reports visual hallucinations of people that I don't know . Medication Compliance: Yes Side effects from medications: No Attending Groups: Yes Review of Systems Constitutional: Reports as per HPI Eyes: Reports as per HPI Reports as per HPI Cardiovascular: Reports as per HPI Respiratory: Reports as per HPI Gastrointestinal: Reports as per HPI Genitourinary: Reports as per HPI Musculoskeletal: Reports as per HPI Skin/Breast: Reports as per HPI Reports as per HPI Psychiatric: Reports as per HPI Endocrine: Reports as per HPI Hematologic/Lymphatic: Reports as per HPI Allergic/Immunologic: Reports as per HPI Mental Status Exam Mental Status Exam Narrative: Pt is alert and oriented; behavior is cooperative and calm; dressed in casual attire; mood is described as good ; eye contact appropriate; Speech is normal rate, volume and not pressured; thought process is organized; Thought content is on tx; denies SI/HI. Pt reports auditory and visual hallucinations. Diagnostics Vital Signs (24Hr): Vital Signs - 24 hr 01/26/24 19:45 01/26/24 19:50 01/27/24 11:03 Temperature 98.7 F Pulse Rate 88 88 Respiratory Rate 16 18 Blood Pressure 121/68 121/68 102/55 L Pulse Oximetry 97 98 Oxygen Delivery Method Room Air Room Air BMI result Body Mass Index 38.3 Labs 01/13/24 04:59 01/13/24 04:59 Medications Medications Current Medications Acetaminophen (Acetaminophen 325 Mg Tablet) 650 mg PO Q6H PRN PRN Reason: Headache/Pain Mild Scale (1-3) Last Admin: 01/20/24 16:31 Dose: 650 mg Al Hydroxide/Mg Hydroxide (Magnesium Hydrox/Alum Hydrox 30 Ml Oral.Susp) 30 ml PO Q6H PRN PRN Reason: Heartburn/Nausea Bupropion HCl (Bupropion Hcl Xl 150 Mg Tab.Er.24h) 150 mg PO DAILY MARY Last Admin: 01/27/24 10:12 Dose: 150 mg Buspirone HCl (Buspirone Hcl 5 Mg Tablet) 15 mg PO DAILY MARY Last Admin: 01/27/24 10:12 Dose: 15 mg Clonidine HCl (Clonidine Hcl 0.1 Mg Tablet) 0.1 mg PO BID PRN; Protocol PRN Reason: anxiety Last Admin: 01/25/24 21:07 Dose: 0.1 mg Hydroxyzine HCl (Hydroxyzine Hcl 25 Mg Tablet) 25 mg PO Q6H PRN PRN Reason: Anxiety Last Admin: 01/25/24 21:06 Dose: 25 mg Ibuprofen (Ibuprofen 800 Mg Tablet) 800 mg PO Q8H PRN PRN Reason: muscle pain Last Admin: 01/21/24 14:28 Dose: 800 mg Lorazepam (Lorazepam 0.5 Mg Tablet) 0.5 mg PO Q12H PRN PRN Reason: severe anxiety Last Admin: 01/21/24 21:00 Dose: 0.5 mg Magnesium Hydroxide (Milk Of Magnesia 30 Ml Oral.Susp) 30 ml PO DAILY PRN PRN Reason: Constipation Melatonin (Melatonin 3 Mg Tablet) 6 mg PO 2100 [facility] Last Admin: 01/26/24 19:45 Dose: 6 mg Naltrexone HCl (Naltrexone Hcl 50 Mg Tablet) 50 mg PO DAILY [facility] Last Admin: 01/27/24 10:12 Dose: 50 mg Pt Own (Quetiapine [ Seroquel Xr] 400 Mg Tablet Extended Release 24 Hr) 400 mg PO BEDTIME [facility] Last Admin: 01/26/24 19:44 Dose: 400 mg Olanzapine (Olanzapine 5 Mg Tablet) 5 mg PO TID PRN PRN Reason: agitation Last Admin: 01/21/24 21:00 Dose: 5 mg Prazosin HCl (Prazosin Hcl 1 Mg Capsule) 3 mg PO BEDTIME [facility]; Protocol Last Admin: 01/26/24 19:45 Dose: 3 mg Sertraline HCl (Sertraline Hcl 25 Mg Tablet) 12.5 mg PO DAILY [facility] Last Admin: 01/27/24 10:12 Dose: 12.5 mg Trazodone HCl (Trazodone Hcl 100 Mg Tablet) 100 mg PO 2100 [facility] Last Admin: 01/26/24 19:45 Dose: 100 mg Allergies Allergies Allergy/AdvReac Type Severity Reaction Status Date / Time haloperidol [From Haldol] AdvReac Severe Involuntary Verified 01/13/24 04:27 Spasms Assessment & Plan Assessment & Plan (1) PTSD (post-traumatic stress disorder): Status: Acute Code(s): F43.10 - Post-traumatic stress disorder, unspecified (2) MDD (major depressive disorder), recurrent, severe, with psychosis: Status: Acute Code(s): F33.3 - Major depressive disorder, recurrent, severe with psychotic symptoms (3) Borderline personality disorder: Status: Acute Code(s): F60.3 - Borderline personality disorder (4) Suicidal ideation: Status: Acute Code(s): R45.851 - Suicidal ideations Plan 18 yo female, history of PTSD, Major Depression, Borderline personality disorder presents with acute SI in the context of medicine noncompliance per her report. Plan: Admit, CV, 15 minute checks- pt believes she can manage this at this time. Collateral contact with treatment team Re-establish regime-pt agrees Full milieu 01/18- Continue tx 01/19- Ibuprofen prn for shoulder pain EKG 01/21- Change timing of Trazodone and Melatonin to 2100 01/23: Continue tx 01/24: Pt continues on 1:1. Pt observed laying in bed. Pt presents guarded with T/W. Refusing to speak to T/W but would answer questions by nodding head. Pt nodding head when asked if she was feeling anxious but declined to go into detail. She shook head no, when asked about SI/HI. When asked if pt had any quetions or needed anything, pt shook head side to side. She was encouraged to speak with staff if needed anything. 01/25 Patient reports feeling little better today and in better self-control; patient has been going to groups and staff reports no self-harming behaviors 2nd shift, compliant with behavioral plan. Patient asks if she can come off one-to-one; discussed this with her and agreed to changing it to close observation and if all goes well to eventually progressed to coming off one-to-one. Patient said she continues to have nightmares and asked if prazosin could be increased. 01/26: continue current tx plan. Plan: Switch to close arbs increased prazosin to 3mg Patient educated on: diagnosis and medication risk/benefits Informed Consent: understands Reason for continued inpatient stay Substantial Risk for: med/psych decompensation Time Spent With Patient Time: Total time managing care of this patient today _20___ minutes.
[2024-01-27 19:14] VITALS: BP 122/78; PULSE 81; TEMP 37.3; O2SAT 99
[2024-01-27] MEDS: Prazosin HCL 1 MG CAPSULE 3 MG PO (20:59)
[2024-01-27] MEDS: Melatonin 3 MG TABLET 6 MG PO (21:00)
[2024-01-27] MEDS: traZODone HCL 100 MG TABLET PO (21:00)
[2024-01-28 08:00] VITALS: BP 122/62; PULSE 82; RESP 16; TEMP 36.8; O2SAT 98
--- NOTE | 2024-01-28 08:34 | P.PNPSI_ITS ---
Subjective Subjective Date of Service: 01/28/24 Reason For Visit: PTSD; Depression Subjective Notes: Conditional Voluntary Interim History: Pt reports she is sleeping better. She woke up later in morning. She denies SI/HI. She reports she is not sure she will be ready to dc Tuesday. She is on a one to one. no self injurious behaviors here on the unit. No psychosis. Review of Systems Review of Systems pain in shoulder, arm, elbow, top of chest-unsure of etiology. States she put on a sports bra yesterday that was with discomfort and believes that may have contributed. Yes all other systems are reviewed and are negative Constitutional: Reports as per HPI Eyes: Reports as per HPI Reports as per HPI Cardiovascular: Reports as per HPI Respiratory: Reports as per HPI Gastrointestinal: Reports as per HPI Musculoskeletal: Reports as per HPI Skin/Breast: Reports as per HPI Reports as per HPI Psychiatric: Reports as per HPI Endocrine: Reports as per HPI Hematologic/Lymphatic: Reports as per HPI Allergic/Immunologic: Reports as per HPI Mental Status Exam Mental Status Exam Narrative: Pt is alert and oriented; behavior is cooperative and calm; dressed in casual attire; mood is described as good ; eye contact appropriate; Speech is normal rate, volume and not pressured; thought process is organized; Thought content is on tx; denies SI/HI. Pt reports auditory and visual hallucinations. Diagnostics Vital Signs (24Hr): Vital Signs - 24 hr 01/27/24 11:03 01/27/24 19:14 Temperature 99.1 F Pulse Rate 88 81 Respiratory Rate 18 Blood Pressure 102/55 L 122/78 Pulse Oximetry 98 99 Oxygen Delivery Method Room Air Room Air BMI result Body Mass Index 38.3 Labs 01/13/24 04:59 01/13/24 04:59 Medications Medications Current Medications Acetaminophen (Acetaminophen 325 Mg Tablet) 650 mg PO Q6H PRN PRN Reason: Headache/Pain Mild Scale (1-3) Last Admin: 01/20/24 16:31 Dose: 650 mg Al Hydroxide/Mg Hydroxide (Magnesium Hydrox/Alum Hydrox 30 Ml Oral.Susp) 30 ml PO Q6H PRN PRN Reason: Heartburn/Nausea Bupropion HCl (Bupropion Hcl Xl 150 Mg Tab.Er.24h) 150 mg PO DAILY [facility] Last Admin: 01/27/24 10:12 Dose: 150 mg Buspirone HCl (Buspirone Hcl 5 Mg Tablet) 15 mg PO DAILY [facility] Last Admin: 01/27/24 10:12 Dose: 15 mg Clonidine HCl (Clonidine Hcl 0.1 Mg Tablet) 0.1 mg PO BID PRN; Protocol PRN Reason: anxiety Last Admin: 01/25/24 21:07 Dose: 0.1 mg Hydroxyzine HCl (Hydroxyzine Hcl 25 Mg Tablet) 25 mg PO Q6H PRN PRN Reason: Anxiety Last Admin: 01/25/24 21:06 Dose: 25 mg Ibuprofen (Ibuprofen 800 Mg Tablet) 800 mg PO Q8H PRN PRN Reason: muscle pain Last Admin: 01/21/24 14:28 Dose: 800 mg Lorazepam (Lorazepam 0.5 Mg Tablet) 0.5 mg PO Q12H PRN PRN Reason: severe anxiety Last Admin: 01/21/24 21:00 Dose: 0.5 mg Magnesium Hydroxide (Milk Of Magnesia 30 Ml Oral.Susp) 30 ml PO DAILY PRN PRN Reason: Constipation Melatonin (Melatonin 3 Mg Tablet) 6 mg PO 2099 [facility] Last Admin: 01/27/24 21:00 Dose: 6 mg Naltrexone HCl (Naltrexone Hcl 50 Mg Tablet) 50 mg PO DAILY [facility] Last Admin: 01/27/24 10:12 Dose: 50 mg Pt Own (Quetiapine [ Seroquel Xr] 400 Mg Tablet Extended Release 24 Hr) 400 mg PO BEDTIME [facility] Last Admin: 01/27/24 21:00 Dose: 400 mg Olanzapine (Olanzapine 5 Mg Tablet) 5 mg PO TID PRN PRN Reason: agitation Last Admin: 01/21/24 21:00 Dose: 5 mg Prazosin HCl (Prazosin Hcl 1 Mg Capsule) 3 mg PO BEDTIME [facility]; Protocol Last Admin: 01/27/24 20:59 Dose: 3 mg Sertraline HCl (Sertraline Hcl 25 Mg Tablet) 12.5 mg PO DAILY [facility] Last Admin: 01/27/24 10:12 Dose: 12.5 mg Trazodone HCl (Trazodone Hcl 100 Mg Tablet) 100 mg PO 2100 [facility] Last Admin: 01/27/24 21:00 Dose: 100 mg Allergies Allergies Allergy/AdvReac Type Severity Reaction Status Date / Time haloperidol [From Haldol] AdvReac Severe Involuntary Verified 01/13/24 04:27 Spasms Assessment & Plan Assessment & Plan (1) PTSD (post-traumatic stress disorder): Status: Acute Code(s): F43.10 - Post-traumatic stress disorder, unspecified (2) MDD (major depressive disorder), recurrent, severe, with psychosis: Status: Acute Code(s): F33.3 - Major depressive disorder, recurrent, severe with psychotic symptoms (3) Borderline personality disorder: Status: Acute Code(s): F60.3 - Borderline personality disorder (4) Suicidal ideation: Status: Acute Code(s): R45.851 - Suicidal ideations Plan 18 yo female, history of PTSD, Major Depression, Borderline personality disorder presents with acute SI in the context of medicine noncompliance per her report. Plan: Admit, CV, 15 minute checks- pt believes she can manage this at this time. Collateral contact with treatment team Re-establish regime-pt agrees Full milieu 01/18- Continue tx 01/19- Ibuprofen prn for shoulder pain EKG 01/21- Change timing of Trazodone and Melatonin to 2100 01/23: Continue tx 01/24: Pt continues on 1:1. Pt observed laying in bed. Pt presents guarded with T/W. Refusing to speak to T/W but would answer questions by nodding head. Pt nodding head when asked if she was feeling anxious but declined to go into detail. She shook head no, when asked about SI/HI. When asked if pt had any quetions or needed anything, pt shook head side to side. She was encouraged to speak with staff if needed anything. 01/25 Patient reports feeling little better today and in better self-control; patient has been going to groups and staff reports no self-harming behaviors 2nd shift, compliant with behavioral plan. Patient asks if she can come off one-to-one; discussed this with her and agreed to changing it to close observation and if all goes well to eventually progressed to coming off one-to-one. Patient said she continues to have nightmares and asked if prazosin could be increased. 01/26: continue current tx plan. 01/27 continue tx. Plan: Switch to close arbs increased prazosin to 3mg Reason for continued inpatient stay Substantial Risk for: stable for discharge Time Spent With Patient Time: Total time managing care of this patient today ____ minutes.
[2024-01-28] MEDS: busPIRone HCl 5 MG TABLET 15 MG PO (11:00)
[2024-01-28] MEDS: Sertraline HCL 25 MG TABLET 12.5 MG PO (11:00)
[2024-01-28] MEDS: Naltrexone HCl 50 MG TABLET PO (11:01)
[2024-01-28] MEDS: buPROPion HCl XL 150 MG TAB.ER.24H PO (11:01)
[2024-01-28 20:00] VITALS: BP 131/77; PULSE 76; RESP 18; TEMP 36.9; O2SAT 100
[2024-01-28] MEDS: Prazosin HCL 1 MG CAPSULE 3 MG PO (21:00)
[2024-01-28] MEDS: traZODone HCL 100 MG TABLET PO (21:00)
[2024-01-28] MEDS: Melatonin 3 MG TABLET 6 MG PO (21:00)
[2024-01-29 08:46] VITALS: BP 123/72; PULSE 89; RESP 16; TEMP 36.9; O2SAT 97
--- NOTE | 2024-01-29 10:32 | PC.NURSE ---
pt would not arouse for 9am scheduled medication. Respirations even and unlabored. Will reattempt in 1hr.
[2024-01-29 11:56] VITALS: BP 119/62; PULSE 93; RESP 16; TEMP 36.8; O2SAT 98
[2024-01-29] MEDS: Sertraline HCL 25 MG TABLET 12.5 MG PO (12:07)
[2024-01-29] MEDS: Naltrexone HCl 50 MG TABLET PO (12:07)
[2024-01-29] MEDS: busPIRone HCl 5 MG TABLET 15 MG PO (12:07)
[2024-01-29] MEDS: buPROPion HCl XL 150 MG TAB.ER.24H PO (12:07)
--- NOTE | 2024-01-29 19:24 | P.PNPSI_ITS ---
Subjective Subjective Date of Service: 01/29/24 Reason For Visit: PTSD; Depression Subjective Notes: Conditional Voluntary Interim History: Pt reports she is sleeping better. She woke up later in morning. She denies SI/HI. She reports she is not sure she will be ready to dc Tuesday. She is on a one to one. no self injurious behaviors here on the unit. No psychosis. Review of Systems Review of Systems pain in shoulder, arm, elbow, top of chest-unsure of etiology. States she put on a sports bra yesterday that was with discomfort and believes that may have contributed. Yes all other systems are reviewed and are negative Constitutional: Reports as per HPI Eyes: Reports as per HPI Reports as per HPI Cardiovascular: Reports as per HPI Respiratory: Reports as per HPI Gastrointestinal: Reports as per HPI Musculoskeletal: Reports as per HPI Skin/Breast: Reports as per HPI Reports as per HPI Psychiatric: Reports as per HPI Endocrine: Reports as per HPI Hematologic/Lymphatic: Reports as per HPI Allergic/Immunologic: Reports as per HPI Mental Status Exam Mental Status Exam Narrative: Pt is alert and oriented; behavior is cooperative and calm; dressed in casual attire; mood is described as good ; eye contact appropriate; Speech is normal rate, volume and not pressured; thought process is organized; Thought content is on tx; denies SI/HI. Pt reports auditory and visual hallucinations. Diagnostics Vital Signs (24Hr): Vital Signs - 24 hr 01/28/24 20:00 01/29/24 11:56 Temperature 98.5 F 98.3 F Pulse Rate 76 93 Respiratory Rate 18 16 Blood Pressure 131/77 119/62 Pulse Oximetry 100 98 Oxygen Delivery Method Room Air Room Air BMI result Body Mass Index 38.3 Labs 01/13/24 04:59 01/13/24 04:59 Medications Medications Current Medications Acetaminophen (Acetaminophen 325 Mg Tablet) 650 mg PO Q6H PRN PRN Reason: Headache/Pain Mild Scale (1-3) Last Admin: 01/20/24 16:31 Dose: 650 mg Al Hydroxide/Mg Hydroxide (Magnesium Hydrox/Alum Hydrox 30 Ml Oral.Susp) 30 ml PO Q6H PRN PRN Reason: Heartburn/Nausea Bupropion HCl (Bupropion Hcl Xl 150 Mg Tab.Er.24h) 150 mg PO DAILY [facility] Last Admin: 01/29/24 12:07 Dose: 150 mg Buspirone HCl (Buspirone Hcl 5 Mg Tablet) 15 mg PO DAILY [facility] Last Admin: 01/29/24 12:07 Dose: 15 mg Clonidine HCl (Clonidine Hcl 0.1 Mg Tablet) 0.1 mg PO BID PRN; Protocol PRN Reason: anxiety Last Admin: 01/25/24 21:07 Dose: 0.1 mg Hydroxyzine HCl (Hydroxyzine Hcl 25 Mg Tablet) 25 mg PO Q6H PRN PRN Reason: Anxiety Last Admin: 01/25/24 21:06 Dose: 25 mg Ibuprofen (Ibuprofen 800 Mg Tablet) 800 mg PO Q8H PRN PRN Reason: muscle pain Last Admin: 01/21/24 14:28 Dose: 800 mg Lorazepam (Lorazepam 0.5 Mg Tablet) 0.5 mg PO Q12H PRN PRN Reason: severe anxiety Last Admin: 01/21/24 21:00 Dose: 0.5 mg Magnesium Hydroxide (Milk Of Magnesia 30 Ml Oral.Susp) 30 ml PO DAILY PRN PRN Reason: Constipation Melatonin (Melatonin 3 Mg Tablet) 6 mg PO 2099 [facility] Last Admin: 01/28/24 21:00 Dose: 6 mg Naltrexone HCl (Naltrexone Hcl 50 Mg Tablet) 50 mg PO DAILY [facility] Last Admin: 01/29/24 12:07 Dose: 50 mg Pt Own (Quetiapine [ Seroquel Xr] 400 Mg Tablet Extended Release 24 Hr) 400 mg PO BEDTIME [facility] Last Admin: 01/28/24 20:59 Dose: 400 mg Olanzapine (Olanzapine 5 Mg Tablet) 5 mg PO TID PRN PRN Reason: agitation Last Admin: 01/21/24 21:00 Dose: 5 mg Prazosin HCl (Prazosin Hcl 1 Mg Capsule) 3 mg PO BEDTIME [facility]; Protocol Last Admin: 01/28/24 21:00 Dose: 3 mg Sertraline HCl (Sertraline Hcl 25 Mg Tablet) 12.5 mg PO DAILY [facility] Last Admin: 01/29/24 12:07 Dose: 12.5 mg Trazodone HCl (Trazodone Hcl 100 Mg Tablet) 100 mg PO 2100 [facility] Last Admin: 01/28/24 21:00 Dose: 100 mg Allergies Allergies Allergy/AdvReac Type Severity Reaction Status Date / Time haloperidol [From Haldol] AdvReac Severe Involuntary Verified 01/13/24 04:27 Spasms Assessment & Plan Assessment & Plan (1) PTSD (post-traumatic stress disorder): Status: Acute Code(s): F43.10 - Post-traumatic stress disorder, unspecified (2) MDD (major depressive disorder), recurrent, severe, with psychosis: Status: Acute Code(s): F33.3 - Major depressive disorder, recurrent, severe with psychotic symptoms (3) Borderline personality disorder: Status: Acute Code(s): F60.3 - Borderline personality disorder (4) Suicidal ideation: Status: Acute Code(s): R45.851 - Suicidal ideations Plan 18 yo female, history of PTSD, Major Depression, Borderline personality disorder presents with acute SI in the context of medicine noncompliance per her report. Plan: Admit, CV, 15 minute checks- pt believes she can manage this at this time. Collateral contact with treatment team Re-establish regime-pt agrees Full milieu 01/18- Continue tx 01/19- Ibuprofen prn for shoulder pain EKG 01/21- Change timing of Trazodone and Melatonin to 2100 01/23: Continue tx 01/24: Pt continues on 1:1. Pt observed laying in bed. Pt presents guarded with T/W. Refusing to speak to T/W but would answer questions by nodding head. Pt nodding head when asked if she was feeling anxious but declined to go into detail. She shook head no, when asked about SI/HI. When asked if pt had any quetions or needed anything, pt shook head side to side. She was encouraged to speak with staff if needed anything. 01/25 Patient reports feeling little better today and in better self-control; patient has been going to groups and staff reports no self-harming behaviors 2nd shift, compliant with behavioral plan. Patient asks if she can come off one-to-one; discussed this with her and agreed to changing it to close observation and if all goes well to eventually progressed to coming off one-to-one. Patient said she continues to have nightmares and asked if prazosin could be increased. 01/26: continue current tx plan. Plan: Switch to close arbs increased prazosin to 3mg Reason for continued inpatient stay Substantial Risk for: inability to function Time Spent With Patient Time: Total time managing care of this patient today ____ minutes.
[2024-01-29 21:54] VITALS: BP 118/70
[2024-01-29] MEDS: Prazosin HCL 1 MG CAPSULE 3 MG PO (21:54)
[2024-01-29] MEDS: Melatonin 3 MG TABLET 6 MG PO (21:55)
[2024-01-29] MEDS: traZODone HCL 100 MG TABLET PO (21:55)
[2024-01-30 08:00] VITALS: RESP 18
[2024-01-30] MEDS: busPIRone HCl 5 MG TABLET 15 MG PO (11:58)
[2024-01-30] MEDS: Sertraline HCL 25 MG TABLET 12.5 MG PO (11:58)
[2024-01-30] MEDS: Naltrexone HCl 50 MG TABLET PO (11:58)
[2024-01-30] MEDS: buPROPion HCl XL 150 MG TAB.ER.24H PO (12:00)
--- NOTE | 2024-01-30 15:02 | HO.PSYCHPN ---
Subjective Subjective Date of Service: 01/30/24 Reason For Visit: PTSD; Depression Subjective Notes: Conditional Voluntary Healthcare Proxy: No Guardianship: No Medical Problems Affecting Mental Status: No Interim History: Pt reports she is doing well. She discussed thinking she may have low blood sugar as she has not been eating a lot this admission and has low appetite as she does not like the food choices. Also willing to trail Ensure. Discussed watching a peer have a seizure which caused some anxiety. Overall feeling happy however this can change 1-2 hours before going to bed with increased sx depression and when her one to one will talk with others-this makes her anxious, wanting to flee and with increased depressive sx. Has managed this with success by writing a mantra for herself which she reports has helped. Discussed wanting an increase in anxiety med in the afternoon/evening-will add buspirone 10 mg afternoon and evening in trial. Reports SE of feeling tired and poor appetite, however overall feeling better and prepared to discharge on Tuesday. Medication Compliance: Yes Side effects from medications: Yes (?Sedation) Attending Groups: Yes Review of Systems Acute medical concerns: No Medical Review of Systems: unchanged Review of Systems Review of Systems poor appetite Mental Status Exam Mental Status Exam Patient Appearance: Appropriate Patient Orientation: Person, Place, Time and Situation Level of Consciousness: Alert Patient Behavior: Talkative and Good Eye Contact Mood Description: Appropriate Affect Description: Appropriate Patient Cognition Impaired: No Ability to Follow Directions: Good Speech Pattern: Spontaneous Speech Memory Description: Intact Hallucinations: None Delusions: Not Present Thought Process: Intact and Goal Oriented Thought Content: positive for Intact and positive for Goal Oriented Depressive Symptoms: Increased Anxiety and Changes in Appetite Judgement: Good Diagnostics Vital Signs (24Hr): Vital Signs - 24 hr 01/29/24 21:54 01/30/24 08:00 Respiratory Rate 18 Blood Pressure 118/70 Oxygen Delivery Method Room Air BMI result Body Mass Index 38.3 Labs 01/13/24 04:59 01/13/24 04:59 Medications Medications Current Medications Acetaminophen (Acetaminophen 325 Mg Tablet) 650 mg PO Q6H PRN PRN Reason: Headache/Pain Mild Scale (1-3) Last Admin: 01/20/24 16:31 Dose: 650 mg Al Hydroxide/Mg Hydroxide (Magnesium Hydrox/Alum Hydrox 30 Ml Oral.Susp) 30 ml PO Q6H PRN PRN Reason: Heartburn/Nausea Bupropion HCl (Bupropion Hcl Xl 150 Mg Tab.Er.24h) 150 mg PO DAILY [facility] Last Admin: 01/30/24 12:00 Dose: 150 mg Buspirone HCl (Buspirone Hcl 5 Mg Tablet) 15 mg PO DAILY [facility] Last Admin: 01/30/24 11:58 Dose: 15 mg Buspirone HCl (Buspirone Hcl 10 Mg Tablet) 10 mg PO 1500,2100 [facility] Clonidine HCl (Clonidine Hcl 0.1 Mg Tablet) 0.1 mg PO BID PRN; Protocol PRN Reason: anxiety Last Admin: 01/25/24 21:07 Dose: 0.1 mg Hydroxyzine HCl (Hydroxyzine Hcl 25 Mg Tablet) 25 mg PO Q6H PRN PRN Reason: Anxiety Last Admin: 01/25/24 21:06 Dose: 25 mg Ibuprofen (Ibuprofen 800 Mg Tablet) 800 mg PO Q8H PRN PRN Reason: muscle pain Last Admin: 01/21/24 14:28 Dose: 800 mg Lorazepam (Lorazepam 0.5 Mg Tablet) 0.5 mg PO Q12H PRN PRN Reason: severe anxiety Last Admin: 01/21/24 21:00 Dose: 0.5 mg Magnesium Hydroxide (Milk Of Magnesia 30 Ml Oral.Susp) 30 ml PO DAILY PRN PRN Reason: Constipation Melatonin (Melatonin 3 Mg Tablet) 3 mg PO 2099 [facility] Naltrexone HCl (Naltrexone Hcl 50 Mg Tablet) 50 mg PO DAILY [facility] Last Admin: 01/30/24 11:58 Dose: 50 mg Pt Own (Quetiapine [ Seroquel Xr] 400 Mg Tablet Extended Release 24 Hr) 400 mg PO BEDTIME [facility] Last Admin: 01/29/24 21:54 Dose: 400 mg Olanzapine (Olanzapine 5 Mg Tablet) 5 mg PO TID PRN PRN Reason: agitation Last Admin: 01/21/24 21:00 Dose: 5 mg Prazosin HCl (Prazosin Hcl 1 Mg Capsule) 3 mg PO BEDTIME [facility]; Protocol Last Admin: 01/29/24 21:54 Dose: 3 mg Sertraline HCl (Sertraline Hcl 25 Mg Tablet) 12.5 mg PO DAILY [facility] Last Admin: 01/30/24 11:58 Dose: 12.5 mg Trazodone HCl (Trazodone Hcl 100 Mg Tablet) 100 mg PO 2099 [facility] Last Admin: 01/29/24 21:55 Dose: 100 mg Allergies Allergies Allergy/AdvReac Type Severity Reaction Status Date / Time haloperidol [From Haldol] AdvReac Severe Involuntary Verified 01/13/24 04:27 Spasms Assessment & Plan Assessment & Plan (1) PTSD (post-traumatic stress disorder): Status: Acute Code(s): F43.10 - Post-traumatic stress disorder, unspecified (2) MDD (major depressive disorder), recurrent, severe, with psychosis: Status: Acute Code(s): F33.3 - Major depressive disorder, recurrent, severe with psychotic symptoms (3) Borderline personality disorder: Status: Acute Code(s): F60.3 - Borderline personality disorder (4) Suicidal ideation: Status: Acute Code(s): R45.851 - Suicidal ideations Plan 18 yo female, history of PTSD, Major Depression, Borderline personality disorder presents with acute SI in the context of medicine noncompliance per her report. Plan: Admit, CV, 15 minute checks- pt believes she can manage this at this time. Collateral contact with treatment team Re-establish regime-pt agrees Full milieu 01/18- Continue tx 01/19- Ibuprofen prn for shoulder pain EKG 01/21- Change timing of Trazodone and Melatonin to 2100 01/23: Continue tx 01/24: Pt continues on 1:1. Pt observed laying in bed. Pt presents guarded with T/W. Refusing to speak to T/W but would answer questions by nodding head. Pt nodding head when asked if she was feeling anxious but declined to go into detail. She shook head no, when asked about SI/HI. When asked if pt had any quetions or needed anything, pt shook head side to side. She was encouraged to speak with staff if needed anything. 01/25 Patient reports feeling little better today and in better self-control; patient has been going to groups and staff reports no self-harming behaviors 2nd shift, compliant with behavioral plan. Patient asks if she can come off one-to-one; discussed this with her and agreed to changing it to close observation and if all goes well to eventually progressed to coming off one-to-one. Patient said she continues to have nightmares and asked if prazosin could be increased. 01/26: continue current tx plan. 01/29: Buspirone 10 mg 1500,2100 Decrease Melatonin to 3 mg HS POC BID Discharge 01/31/24. Plan: Switch to close arbs increased prazosin to 3mg Patient educated on: therapeutic strategies Informed Consent: understands Reason for continued inpatient stay Substantial Risk for: rapid decompensation Time Spent With Patient Time: Total time managing care of this patient today ____ minutes.
[2024-01-30] MEDS: busPIRone HCl 10 MG TABLET PO ×2 (16:47→21:55)
[2024-01-30 20:00] VITALS: BP 130/74; PULSE 104; RESP 16
[2024-01-30 21:51] VITALS: BP 130/74
[2024-01-30] MEDS: Prazosin HCL 1 MG CAPSULE 3 MG PO (21:51)
[2024-01-30] MEDS: traZODone HCL 100 MG TABLET PO (21:51)
[2024-01-30] MEDS: Melatonin 3 MG TABLET PO (21:51)
[2024-01-31 09:08] VITALS: BP 127/60; PULSE 101; RESP 16; TEMP 36.6; O2SAT 100
[2024-01-31 09:11] LABS: Glucose, Whole Blood 111 mg/dL (60-115)
[2024-01-31] MEDS: Sertraline HCL 25 MG TABLET 12.5 MG PO (09:12)
[2024-01-31] MEDS: buPROPion HCl XL 150 MG TAB.ER.24H PO (09:12)
[2024-01-31] MEDS: busPIRone HCl 5 MG TABLET 15 MG PO (09:12)
[2024-01-31] MEDS: Naltrexone HCl 50 MG TABLET PO (09:12)
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
== END 2024-01-31 11:35 | disposition home or self-care (01) | DRG 751 ==
LOC: HO.ED 13:26 → HO.PM5 13:39
PROVIDERS: Emergency Medicine; Admitting Provider Clinical Nurse Specialist Psychiatric/Mental Health, Adult; Emergency Provider Emergency Medicine Emergency Medical Services; PCP Pediatrics; Visit Provider Clinical Nurse Specialist Psychiatric/Mental Health, Adult
DX: F33.3 Major depressive disorder, recurrent, severe with psychotic symptoms (principal); R45.851 Suicidal ideations; Z91.148 Patient's other noncompliance with medication regimen for other reason; F60.3 Borderline personality disorder; F43.10 Post-traumatic stress disorder, unspecified; Z79.899 Other long term (current) drug therapy
CPT/HCPCS: 36415; 80053; 80061; 80307; 81003; 81025; 82607; 82746; 82947; 83036; 83735; 84439; 84443; 85025; 93005; 99285; S9485

== ENCOUNTER → 2024-01-13 08:39 | Outpatient (BNV) | payer OTHER, SELFPAY | PROVIDERS: Admitting Provider Clinical Nurse Specialist Psychiatric/Mental Health, Adult; Emergency Provider Emergency Medicine Emergency Medical Services; PCP Pediatrics; Visit Provider Internal Medicine Cardiovascular Disease | DX: R94.31 Abnormal electrocardiogram [ECG] [EKG] (principal) | CPT/HCPCS: 93010 ==

== ENCOUNTER 2024-01-13 13:35 | Outpatient (BNV) | payer OTHER, SELFPAY | END 2024-01-20 15:09 | PROVIDERS: Admitting Provider Clinical Nurse Specialist Psychiatric/Mental Health, Adult; Emergency Provider Emergency Medicine Emergency Medical Services; PCP Pediatrics; Visit Provider Internal Medicine | DX: R07.9 Chest pain, unspecified (principal) | CPT/HCPCS: 93010 ==

== ENCOUNTER → 2024-01-13 13:35 | Outpatient (BNV) | payer OTHER, SELFPAY | PROVIDERS: Admitting Provider Clinical Nurse Specialist Psychiatric/Mental Health, Adult; Emergency Provider Emergency Medicine Emergency Medical Services; PCP Pediatrics; Visit Provider Clinical Nurse Specialist Psychiatric/Mental Health | DX: F60.3 Borderline personality disorder (principal); F33.3 Major depressive disorder, recurrent, severe with psychotic symptoms; R45.851 Suicidal ideations; F43.11 Post-traumatic stress disorder, acute | CPT/HCPCS: 90792; 99231; 99232; 99238 ==

== ENCOUNTER 2025-05-28 15:44 | Inpatient (IN) | payer OTHER, SELFPAY ==
--- NOTE | 2025-05-28 | ECG_ITS ---
Test Reason : Monitor QTc on antipsychotic Blood Pressure : */* mmHG Vent. Rate : 72 BPM Atrial Rate : 72 BPM P-R Int : 144 ms QRS Dur : 80 ms QT Int : 390 ms P-R-T Axes : 48 45 45 degrees QTcB Int : 427 ms Normal sinus rhythm Normal ECG When compared with ECG of 20-Jan-2024 15:09, No significant change was found Referred By: Karolina Vasquez Electronically Signed By: SHADE JOHN MD
[2025-05-28 16:00] VITALS: BP 131/81; PULSE 93; RESP 16; TEMP 36.7; O2SAT 98
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
[2025-05-28 17:49] VITALS: BMI 42.7
--- OUTSIDE RECORDS SUMMARY | 2025-05-28 18:43 | XMS_ITS | Encounter Summary ---
Author Organization [facility] Address [address] [place] [phone] Phone Support Name Relationship Address Phone Purnima Kothari Unrelated friend [address] [place] [address] Care Team Providers Care Tester Compressed Gases Name Role Phone Michael Iqbal DO Primary Care Provider [phone] Reason for Visit * Reason Comments Med Refill Encounter Details Date Type Department Care Team (Late st Contact Info) Description 08/19/2022 Refill [facility] [address] [place] [address] Layo Moon MD [address] [place] [address] Anemia, unspecified type Social History Tobacco Use Types Packs/Day Years Used Date Smoking Tobacco: Never Smokeless Tobacco: Never Alcohol Use Standard Drinks/Week Comments Never 0 (1 standard drink = 0.6 oz pur e alcohol) Hunger/Food Answer Date Recorded In the last 12 months, did y ou or your family ever eat less than you felt you should because there wasn't enough money for food? No 08/25/2021 Stable Housing Answer Date Recorded Are you worried that in the next 2 months you may not have stable housing? No 08/25/2021 Transportation Concerns Answer Date Rec orded In the last 12 months, have you or your family ever had to go without healthcare because you didn't have a way to get there? No 08/25/2021 Hazards in Home Answer Date Recorded Think about the place you li ve. Do you have problems with any of the following? Pests (mice or roaches), mold, no/not working smoke detectors, water leaks, no window guards. No 2021 Financing Utilities Answer Date Recorde d In the last 12 months, has t he electric, gas, oil, or water company threatened to shut off your services in your home? No 08/25/2021 Safety at Home Answer Date Recorded Are you or your family worried about feeling saf e in your home? No 08/25/2021 Outside Support Answer Date Recorded Do you feel that you need mo re support from other people or programs to help you care for yourself or your family? No 08/25/2021 Understanding Health Concerns Answer Da te Recorded Do you need help understandi ng your or your child's healthcare needs (diagnosis, medications, plan, etc.)? No 08/25/2021 Financing Health Concerns Answer Date R ecorded In the last 12 months, was t here a time when your child needed to see a doctor or get medications or supplies but could not because of cost? No 08/25/2021 Missing School or Work Answer Date Fish rded Did you or your child miss s chool or work because of a health problem that could have been avoided? No 08/25/2021 Comments No Sex and Gender Information Value Date Recorded Sex Assigned at Not on file Legal Sex Female 6:21 PM EDT Gender Identity Not on file Sexual Orientation Bisexual 12/17/2022 8: 59 AM EDT documented as of this encounter Miscellaneous Notes * Telephone Encounter - Lor Chinchilla MD - 08/19/2022 12:35 PM EST Refill sent to pharmacy on record * Telephone Encounter - Tania Ulloa CMA - 08/19/2022 11:47 AM EST Request for refill on ferrous sulfate Forward to Dr. Chinchilla. Thanks documented in this encounter Plan of Treatment Upcoming Encounters Date Type Department Care Team (Late st Contact Info) Description 06/04/2025 1:30 PM EDT [facility] Visit [facility] [address] [address] Michael Iqbal DO [address] [place] [address] documented as of this encounter Visit Diagnoses Diagnosis Anemia, unspecified type documented in this encounter Care Teams Tester Compressed Gases Relationship Specialty Start Date End Date Michael Iqbal DO [address] [place] [address] PCP - General 12/28/17 OPTHAMOLOGY 03/07/18 documented as of this encounter
--- OUTSIDE RECORDS SUMMARY | 2025-05-28 18:43 | XMS_ITS | Encounter Summary ---
Author Organization [facility] Address [address] [place] [address] Phone Support Name Relationship Address Phone Purnima Kothari Unrelated friend [address] [place] [address] Care Team Providers Care Commissioner Of Officials Name Role Phone Michael Iqbal DO Primary Care Provider [phone] Reason for Visit * Reason Comments Med Refill Encounter Details Date Type Department Care Team (Late st Contact Info) Description 12/17/2022 Refill [facility] [id number] [place] [address] Lor Chinchilla MD [address] [place] [address] Anemia, unspecified type Social History Tobacco Use [...] there wasn't enough money for food? No 12/17/2022 Stable Housing Answer Date Recorded Are you worried that in the next 2 months you may not have stable housing? No 12/17/2022 Transportation Concerns Answer Date Rec orded In the last 12 months, have you or your family ever had to go without healthcare because you didn't have a way to get there? No 12/17/2022 Hazards in Home Answer Date Recorded Think about the place you li ve. Do you have problems with any of the following? Pests (mice or roaches), mold, no/not working smoke detectors, water leaks, no window guards. No 2022 Financing Utilities Answer Date Recorde d In the last 12 months, has t he electric, gas, oil, or water company threatened to shut off your services in your home? No 12/17/2022 Safety at Home Answer Date Recorded Are you or your family worried about feeling saf e in your home? No 12/17/2022 Outside Support Answer Date Recorded Do you feel that you need mo re support from other people or programs to help you care for yourself or your family? No 12/17/2022 Understanding Health Concerns Answer Da te Recorded Do you need help understandi ng your or your child's healthcare needs (diagnosis, medications, plan, etc.)? No 12/17/2022 Financing Health Concerns Answer Date R ecorded In the last 12 months, was t here a time when your child needed to see a doctor or get medications or supplies but could not because of cost? No 12/17/2022 Missing School or Work Answer Date Fish rded Did you or your child miss s chool or work because of a health problem that could have been avoided? No 12/17/2022 Comments No Sex and Gender Information Value Date Recorded Sex Assigned at Not on file Legal Sex Female 6:21 PM EDT Gender Identity Not on file Sexual Orientation Bisexual 12/17/2022 8: 59 AM EDT documented as of this encounter Miscellaneous Notes * Telephone Encounter - Michael Iqbal DO - 12/17/2022 8:51 AM EDT Normal hgb * Telephone Encounter - Tania Ulloa CMA - 12/17/2022 8:01 AM EDT Request for refill on ferrous sulfate 325 mg tab Forward to Dr. Iqbal. Thanks documented in this encounter Plan of Treatment Upcoming Encounters Date Type Department Care Team (Late st Contact Info) Description 06/04/2025 1:30 PM EDT [facility] Visit [facility] [address] [address] Michael Iqbal DO [address] [place] [address] documented as of this encounter Visit Diagnoses Diagnosis Anemia, unspecified type documented in this encounter Care Teams Commissioner Of Officials Relationship Specialty Start Date End Date Michael Iqbal DO [address] [place] [address] PCP - General 12/28/17 OPTHAMOLOGY 03/07/18 documented as of this encounter
--- OUTSIDE RECORDS SUMMARY | 2025-05-28 18:43 | XMS_ITS | Encounter Summary ---
Author Organization [facility] Address [address] [place] [address] Phone Care Team Providers Care Cupola Man Name Role Phone Rasheed Michael Primary Care Provider [phone] Reason for Visit * Reason Comments Med Refill Encounter Details Date Type Department Care Team (Late st Contact Info) Description 01/30/2019 [facility]ill [facility] [address] [address] Alyssa Olivas MD [address] [place] [address] Asthma, unspecified asthma severity, unspecified whether complicated, unspecified whether persistent (Primary Dx) Social History Tobacco Use Types Packs/Day Years Used Date Smoking Tobacco: Never Assessed Comments No Sex and Gender Information Value Date Recorded Sex Assigned at Not on file Legal Sex Female 6:21 PM EDT Gender Identity Not on file Sexual Orientation Bisexual 12/17/2022 8: 59 AM EDT documented as of this encounter Miscellaneous Notes * Telephone Encounter - Stacie Sol MA - 01/30/2019 9:19 AM EDT Request from pharmacy for Rx Fluticasone nasal spray Rx sent to [facility] verified documented in this encounter Plan of Treatment Upcoming Encounters Date Type Department Care Team (Late st Contact Info) Description 06/04/2025 1:30 PM EDT [facility] Visit [facility] [address] [address] Michael Iqbal DO [address] [place] [address] documented as of this encounter Visit Diagnoses Diagnosis Asthma, unspecified asthma severity, unspecified whether complicated, unspecified whether persistent- Primary documented in this encounter Care Teams Cupola Man Relationship Specialty Start Date End Date Michael Iqbal DO [address] [place] [address] PCP - General 12/28/17 OPTHAMOLOGY 03/07/18 documented as of this encounter
--- OUTSIDE RECORDS SUMMARY | 2025-05-28 18:43 | XMS_ITS | Encounter Summary ---
Author Organization [facility] Address [address] [place] [address] Phone Care Team Providers Care Bottom Hoop Driver Name Role Phone Michael Iqbal DO Primary Care Provider [phone] Encounter Details Date Type Department Care Team (Late st Contact Info) Description 01/08/2018 Conversion Encounter [facility] [address] [place] [address] Michael Iqbal DO [address] [place] [address] Social History Tobacco Use Types Packs/Day Years Used Date Smoking Tobacco: Never Assessed Comments Unknown Sex and Gender Information Value Date Recorded Sex Assigned at Not on file Legal Sex Female 6:21 PM EDT Gender Identity Not on file Sexual Orientation Bisexual 12/17/2022 8: 59 AM EDT documented as of this encounter Plan of Treatment Upcoming Encounters Date Type Department Care Team (Late st Contact Info) Description 06/04/2025 1:30 PM EDT Office Visit [facility] [address] [place] [address] Michael Iqbal DO [address] [place] [address] documented as of this encounter Visit Diagnoses Not on filedocumented in this encounter Care Teams Bottom Hoop Driver Relationship Specialty Start Date End Date Michael Iqbal DO [address] [place] [address] PCP - General 12/28/17 OPTHAMOLOGY 03/07/18 documented as of this encounter
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
[2025-05-28 20:00] VITALS: BP 144/96; PULSE 89; RESP 18; TEMP 36.9
[2025-05-28] MEDS: Flu Vacc TS2025-26(6mo up)/PF 0.5 ML SYRINGE IM (21:09)
[2025-05-29 08:00] VITALS: BP 112/72; PULSE 88; RESP 16; TEMP 36.8; O2SAT 99
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
[2025-05-29] MEDS: BUSPIRONE HCL 25 MG PO ×3 (08:44→21:05)
--- NOTE | 2025-05-29 16:56 | PC.NURSE ---
Pt does not have signed CLARI for mom in chart. Pt's mom called asking to speak with pt. When RN asked pt if she wanted to take the phone call from her, pt shook her head no. When RN asked if it was ok to tell her mom she didn't want to talk now but to call back later, pt shook her head yes. RN relayed to mom that pt did not want to talk at this time but did not disclose any other information about her care.
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
[2025-05-29 20:10] VITALS: BP 136/59; PULSE 95; RESP 18; TEMP 37; O2SAT 100
[2025-05-30 07:20] VITALS: BP 104/57; PULSE 83; RESP 16; TEMP 36.7; O2SAT 92
[2025-05-30] MEDS: BUSPIRONE HCL 25 MG PO ×3 (11:44→20:55)
[2025-05-30 12:07] LABS: MANUAL DIFF FLAG NO
[2025-05-30 12:22] LABS: Creatinine Clr Calc Pharmacy 123.8; Estimated Glomerular Filt Rate > 60
[2025-05-30 12:27] LABS: Hematocrit 39.6 % (37.0-47.0); Hemoglobin 12.8 g/dl (12.0-16.0); Imm Gran Abs Auto 0.01 X10*3/uL (0.00-0.03); Imm Gran Pct Auto 0.2 % (0.0-0.4); Lymphocytes Absolute Auto 1.9 X10*3/uL (1.2-4.9); Mean Corpuscular HGB Conc 32.3 g/dl (31.0-35.0); Mean Corpuscular Hemoglobin 26.6 pg (27.0-33.0); Mean Corpuscular Volume 82.2 fL (80.0-98.0); NRBC Abs Auto 0.000 X10*3/uL (0.0-0.012); NRBC Pct Auto 0.0 /100WBC (0.0-0.2); Platelet Count 214 X10*3/uL (160-400); Red Blood Count 4.82 X10*6/uL (4.20-5.50); White Blood Count 6.0 X10*3/uL (4.8-10.8)
[2025-05-30 12:30] LABS: Alanine Aminotransferase 29 U/L (0-31); Albumin Level 4.5 g/dL (3.5-5.0); Alkaline Phosphatase 68 U/L (39-117); Anion Gap 14 (12-20); Aspartate Amino Transferase 25 U/L (5-31); Blood Urea Nitrogen 11 mg/dL (9-16); Calcium 9.3 mg/dL (8.4-10.2); Carbon Dioxide 26 mmol/L (22-29); Chloride 105 mmol/L (96-108); Cholesterol 194 mg/dL (<200); Creatinine Clr Calc Pharmacy 121.0; Estimated Glomerular Filt Rate > 60; HDL Cholesterol 50 mg/dL (>40); Potassium 3.8 mmol/L (3.3-5.1); Sodium 141 mmol/L (135-145); Total Protein 7.4 g/dL (6.5-8.0); Triglycerides 99 mg/dL (<150)
[2025-05-30 12:45] LABS: Thyroid Stimulating Hormone 1.52 uIU/mL (0.32-4.0)
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
[2025-05-30 15:21] LABS: Vitamin B12 859 pg/mL (200-900)
[2025-05-30 16:51] LABS: Hemoglobin A1C 117.6660 umol/L; Total Hemoglobin (HGBA1C) 3334.2276 umol/L
[2025-05-30 20:00] VITALS: BP 144/74; PULSE 92; RESP 16; TEMP 36.8; O2SAT 96
[2025-05-30 20:57] VITALS: BP 144/74
[2025-05-31 07:36] VITALS: BP 107/65; PULSE 75; RESP 20; TEMP 36.7; O2SAT 98
[2025-05-31] MEDS: BUSPIRONE HCL 25 MG PO ×3 (09:19→20:43)
--- NOTE | 2025-05-31 17:59 | HO.PSYCHPN ---
Subjective Subjective Date of Service: 05/31/25 Reason For Visit: SI Subjective Notes: Conditional Voluntary Interim History: Pt reports that she started speaking again yesterday afternoon b/c it was a staff member's birthday that she's known for 3 yrs and she felt it was important to wish him a happy birthday. She reports that her depression significantly improved since she's able to talk again. Discussed triggers for depression and personality changes. She's noticed significant dips her in mood prior to her period and thru 1st couple days of bleeding. Her psychiatrist suggested she consider control but she'd rather not take it. She reports that her depression felt very heavy. It was very difficult to get out of bed, shower or interact with others. She cx'd all of her appts even though she likes her providers. She increased sertraline to 125 mg a few mos ago and it helped w/ depression/anxiety but the benefits tend to wear off over time with each dose increase. She prefers to titrate the sertraline further, rather than start over with a new med. She reports that this is her first hospitalization w/o having a 1:1. T/W reflected that shows progress w/ her coping skills and she agreed. Mental Status Exam Mental Status Exam Narrative: Appearance: Casually dressed in same heart pjs as yesterday, wearing a jacket over it. Grooming/hygiene wnl. Good eye contact Attitude:Cooperative Speech: Fluent and wnl in regard to volume, tone, prosody Motor activity: Calm and without any tics, tremors or dyskinesias. Steady gait Mood: as noted above Affect: appropriate, reactive, generally bright Thought process: goal directed and without evidence of formal thought disorder Thought content: as noted above. denies current SI Perception:does not appear to respond to internal stimuli Alert/oriented in all spheres Cognition grossly intact Insight: intact Judgment: intact Diagnostics Vital Signs (24Hr): Vital Signs - 24 hr 05/30/25 20:00 05/30/25 20:57 05/31/25 07:36 Temperature 98.2 F 98.1 F Pulse Rate 92 75 Respiratory Rate 16 20 Blood Pressure 144/74 H 144/74 H 107/65 Pulse Oximetry 96 98 Oxygen Delivery Method Room Air Room Air BMI result Body Mass Index 42.7 Labs 05/30/25 12:01 05/30/25 12:01 Labs: Laboratory Results - last 48 hr 05/30/25 05/30/25 05/30/25 12:01 12:01 12:01 WBC 6.0 RBC 4.82 Hgb 12.8 Hct 39.6 MCV 82.2 MCH 26.6 L MCHC 32.3 RDW 13.2 Plt Count 214 MPV 10.9 Immature Gran % (Auto) 0.2 Neut % (Auto) 58.5 Lymph % (Auto) 31.0 [place] % (Auto) 7.5 Eos % (Auto) 2.3 Baso % (Auto) 0.5 Lymph # (Auto) 1.9 [place] # (Auto) 0.5 Eos # (Auto) 0.1 Baso # (Auto) 0.0 Abs Immat Gran (auto) 0.01 Absolute Neuts (auto) 3.5 Absolute Nucleated RBC 0.000 Nucleated RBC % (auto) 0.0 Sodium 141 Potassium 3.8 Chloride 105 Carbon Dioxide 26 Anion Gap 14 BUN 11 Creatinine 0.88 0.86 Estim Creat Clear Calc 121.0 123.8 Estimated GFR > 60 Random Glucose Estimat Average Glucose Hemoglobin A1c % Calcium Total Bilirubin AST ALT Alkaline Phosphatase Total Protein Albumin Triglycerides Cholesterol LDL Cholesterol, Calc HDL Cholesterol Vitamin B12 TSH 05/30/25 05/30/25 12:01 14:30 WBC RBC Hgb Hct MCV MCH MCHC RDW Plt Count MPV Immature Gran % (Auto) Neut % (Auto) Lymph % (Auto) [place] % (Auto) Eos % (Auto) Baso % (Auto) Lymph # (Auto) [place] # (Auto) Eos # (Auto) Baso # (Auto) Abs Immat Gran (auto) Absolute Neuts (auto) Absolute Nucleated RBC Nucleated RBC % (auto) Sodium Potassium Chloride Carbon Dioxide Anion Gap BUN Creatinine Estim Creat Clear Calc Estimated GFR > 60 Random Glucose 107 Estimat Average Glucose 108 Hemoglobin A1c % 5.4 Calcium 9.3 Total Bilirubin 0.7 AST 25 ALT 29 Alkaline Phosphatase 68 Total Protein 7.4 Albumin 4.5 Triglycerides 99 Cholesterol 194 LDL Cholesterol, Calc 125 H HDL Cholesterol 50 Vitamin B12 859 TSH 1.52 Medications Medications Current Medications Acetaminophen (Acetaminophen 325 Mg Tablet) 650 mg PO Q6H PRN PRN Reason: Headache/Pain, Scale 1-10 Al Hydroxide/Mg Hydroxide (Magnesium Hydrox/Alum Hydrox 30 Ml Oral.Susp) 30 ml PO Q6H PRN PRN Reason: Heartburn/Nausea Buspirone HCl 20 mg/ Buspirone (HCl 5 mg) 25 mg PO TID [facility] Last Admin: 05/31/25 14:30 Dose: 25 mg Cyanocobalamin (Cyanocobalamin (Vitamin B-12) 100 Mcg Tablet) 100 mcg PO DAILY [facility] Last Admin: 05/31/25 09:21 Dose: 100 mcg Hydroxyzine HCl (Hydroxyzine Hcl 25 Mg Tablet) 25 mg PO Q6H PRN PRN Reason: Anxiety Magnesium Hydroxide (Milk Of Magnesia 30 Ml Oral.Susp) 30 ml PO DAILY PRN PRN Reason: Constipation Melatonin (Melatonin 3 Mg Tablet) 6 mg PO BEDTIME [facility] Last Admin: 05/30/25 20:56 Dose: 6 mg Metformin HCl (Metformin Hcl 500 Mg Tablet) 500 mg PO BID [facility] Last Admin: 05/31/25 09:22 Dose: 500 mg Multivitamins/Vitamin C (Multivitamin Tablet) 1 tab PO DAILY [facility] Last Admin: 05/31/25 09:21 Dose: 1 tab Naltrexone HCl (Naltrexone Hcl 50 Mg Tablet) 50 mg PO DAILY [facility] Last Admin: 05/31/25 09:21 Dose: 50 mg Prazosin HCl (Prazosin Hcl 1 Mg Capsule) 1 mg PO BEDTIME [facility]; Protocol Last Admin: 05/30/25 20:57 Dose: 1 mg Quetiapine Fumarate (Quetiapine Fumarate 25 Mg Tablet) 25 mg PO TID PRN PRN Reason: anxiety and/or mild agitation Last Admin: 05/30/25 20:57 Dose: 25 mg Quetiapine Fumarate (Quetiapine Fumarate 400 Mg Tablet) 400 mg PO BEDTIME [facility] Last Admin: 05/30/25 20:58 Dose: 400 mg Sertraline HCl (Sertraline Hcl 100 Mg Tablet) 100 mg PO DAILY [facility] Last Admin: 05/31/25 09:21 Dose: 100 mg Sertraline HCl (Sertraline Hcl 50 Mg Tablet) 50 mg PO DAILY [facility] Trazodone HCl (Trazodone Hcl 50 Mg Tablet) 50 mg PO BEDTIME MRX1 PRN PRN Reason: Insomnia Vitamin D (Cholecalciferol (Vitamin D3) 25 Mcg Tablet) 50 mcg PO DAILY [facility] Last Admin: 05/31/25 09:20 Dose: 50 mcg Allergies Allergies Allergy/AdvReac Type Severity Reaction Status Date / Time omeprazole Allergy Unknown Verified 05/28/25 17:50 Pork/Porcine Containing Allergy Unknown Verified 05/28/25 17:50 Products haloperidol (From Haldol) AdvReac Severe Involuntary Verified 01/13/24 04:27 Spasms Assessment & Plan Assessment & Plan (1) Borderline personality disorder: Status: Acute Code(s): F60.3 - Borderline personality disorder (2) MDD (major depressive disorder), recurrent episode: Status: Acute Code(s): F33.9 - Major depressive disorder, recurrent, unspecified (3) PTSD (post-traumatic stress disorder): Status: Acute Code(s): F43.10 - Post-traumatic stress disorder, unspecified (4) Autism: Status: Acute Code(s): F84.0 - Autistic disorder Assessment and Plan: Per outpatient psychiatrist, Dr. Pablo-- unclear if pt has formal dx of ASD Plan Ms. Morrison is a 19 yo SWF with h/o ASD, borderline personality d/o, PTSD, selective mutism, MDD with psychotic features, multiple inpt hospitalizations and suicide attempts, and severe TBI at age 9 who was brought to the ED by ambulance due to SI. Pt is agreeable with taking her usual home medication regimen for now and was able to communicate by writing to clarify the timing and doses of her meds. Pt is admitted to [facility] M3 psych unit for safety & stabilization Legal status- CV 15 min safety checks Continue home meds- buspirone 25 mg tid melatonin 6 mg qhs natlrexone 50 mg qam trazodone 50 mg qhs prn for insomnia Will start prazosin 1 mg tonight since it's not clear when pt last took it (off-label for nightmares) Will give Seroquel 400 mg qhs and request 400 mg XR as non-formulary med Milieu therapy Care coordination- I will call Dr. Pablo tomorrow Obtain collateral contact with pt's mother 05/30: Remains selectively mute. She has not engaged in behaviors that put her at risk of harm to self/others on the unit. Per t/w's communication with pt's outpatient psychiatrist, Dr. Pablo, a short hospitalization is recommended. Pt has a good outpatient support team who know pt well. 05/31: Pt is speaking fluently today, reports signif mood improvement. She has not engaged in any self harming/aggressive behaviors. She agrees with recs to titrate sertraline to 150 mg to optimize tx of depression, anxiety and premenstrual exacerbation of mood sx Patient educated on: therapeutic strategies Informed Consent: understands Reason for continued inpatient stay Substantial Risk for: med/psych decompensation Time Spent With Patient Time: Total time managing care of this patient today __30__ minutes.
[2025-05-31 20:00] VITALS: RESP 16
[2025-05-31 20:44] VITALS: BP 118/59
[2025-06-01 08:00] VITALS: BP 105/59; PULSE 74; RESP 18; TEMP 36.3; O2SAT 93
[2025-06-01] MEDS: BUSPIRONE HCL 25 MG PO ×3 (10:01→21:18)
--- NOTE | 2025-06-01 13:32 | HO.PSYCHPN ---
Subjective Subjective Date of Service: 06/01/25 Reason For Visit: SI Subjective Notes: Conditional Voluntary Interim History: Patient was seen and discussed in rounds today. Records and plans were reviewed. She has continued to be blunted. Eating and sleeping adequately. Continues to have some auditory hallucinations. She is social and interactive. No aggressive episodes. She is requesting to increase her prazosin which she recently restarted and I went to 2 mg. She denies any side effects. No SI. Review of Systems Review of Systems Yes all other systems are reviewed and are negative Mental Status Exam Mental Status Exam Narrative: Appearance: Casually dressed in same heart pjs as yesterday, wearing a jacket over it. Grooming/hygiene wnl. Good eye contact Attitude:Cooperative Speech: Fluent and wnl in regard to volume, tone, prosody Motor activity: Calm and without any tics, tremors or dyskinesias. Steady gait Mood: as noted above Affect: appropriate, reactive, generally bright Thought process: goal directed and without evidence of formal thought disorder Thought content: as noted above. denies current SI Perception:does not appear to respond to internal stimuli Alert/oriented in all spheres Cognition grossly intact Insight: intact Judgment: intact Diagnostics Vital Signs (24Hr): Vital Signs - 24 hr 05/31/25 20:00 05/31/25 20:44 06/01/25 08:00 Temperature 97.3 F Pulse Rate 74 Respiratory Rate 16 18 Blood Pressure 118/59 L 105/59 L Pulse Oximetry 93 Oxygen Delivery Method Room Air BMI result Body Mass Index 42.7 Labs 05/30/25 12:01 05/30/25 12:01 Labs: Laboratory Results - last 48 hr 05/30/25 05/30/25 12:01 14:30 Estimat Average Glucose 108 Hemoglobin A1c % 5.4 Vitamin B12 859 Medications Medications Current Medications Acetaminophen (Acetaminophen 325 Mg Tablet) 650 mg PO Q6H PRN PRN Reason: Headache/Pain, Scale 1-10 Al Hydroxide/Mg Hydroxide (Magnesium Hydrox/Alum Hydrox 30 Ml Oral.Susp) 30 ml PO Q6H PRN PRN Reason: Heartburn/Nausea Buspirone HCl 20 mg/ Buspirone (HCl 5 mg) 25 mg PO TID [facility] Last Admin: 06/01/25 10:01 Dose: 25 mg Cyanocobalamin (Cyanocobalamin (Vitamin B-12) 100 Mcg Tablet) 100 mcg PO DAILY [facility] Last Admin: 06/01/25 10:02 Dose: 100 mcg Hydroxyzine HCl (Hydroxyzine Hcl 25 Mg Tablet) 25 mg PO Q6H PRN PRN Reason: Anxiety Magnesium Hydroxide (Milk Of Magnesia 30 Ml Oral.Susp) 30 ml PO DAILY PRN PRN Reason: Constipation Melatonin (Melatonin 3 Mg Tablet) 6 mg PO BEDTIME [facility] Last Admin: 05/31/25 20:44 Dose: 6 mg Metformin HCl (Metformin Hcl 500 Mg Tablet) 500 mg PO BID [facility] Last Admin: 06/01/25 10:02 Dose: 500 mg Multivitamins/Vitamin C (Multivitamin Tablet) 1 tab PO DAILY [facility] Last Admin: 06/01/25 10:01 Dose: 1 tab Naltrexone HCl (Naltrexone Hcl 50 Mg Tablet) 50 mg PO DAILY [facility] Last Admin: 06/01/25 10:06 Dose: 50 mg Prazosin HCl (Prazosin Hcl 1 Mg Capsule) 1 mg PO BEDTIME [facility]; Protocol Last Admin: 05/31/25 20:44 Dose: 1 mg Quetiapine Fumarate (Quetiapine Fumarate 25 Mg Tablet) 25 mg PO TID PRN PRN Reason: anxiety and/or mild agitation Last Admin: 05/30/25 20:57 Dose: 25 mg Quetiapine Fumarate (Quetiapine Fumarate 400 Mg Tablet) 400 mg PO BEDTIME [facility] Last Admin: 05/31/25 20:44 Dose: 400 mg Sertraline HCl (Sertraline Hcl 100 Mg Tablet) 100 mg PO DAILY [facility] Last Admin: 06/01/25 10:02 Dose: 100 mg Sertraline HCl (Sertraline Hcl 50 Mg Tablet) 50 mg PO DAILY [facility] Last Admin: 06/01/25 10:03 Dose: 50 mg Trazodone HCl (Trazodone Hcl 50 Mg Tablet) 50 mg PO BEDTIME MRX1 PRN PRN Reason: Insomnia Vitamin D (Cholecalciferol (Vitamin D3) 25 Mcg Tablet) 50 mcg PO DAILY [facility] Last Admin: 06/01/25 10:01 Dose: 50 mcg Allergies Allergies Allergy/AdvReac Type Severity Reaction Status Date / Time omeprazole Allergy Unknown Verified 05/28/25 17:50 Pork/Porcine Containing Allergy Unknown Verified 05/28/25 17:50 Products haloperidol (From Haldol) AdvReac Severe Involuntary Verified 01/13/24 04:27 Spasms Assessment & Plan Assessment & Plan (1) Borderline personality disorder: Status: Acute Code(s): F60.3 - Borderline personality disorder (2) MDD (major depressive disorder), recurrent episode: Status: Acute Code(s): F33.9 - Major depressive disorder, recurrent, unspecified (3) PTSD (post-traumatic stress disorder): Status: Acute Code(s): F43.10 - Post-traumatic stress disorder, unspecified (4) Autism: Status: Acute Code(s): F84.0 - Autistic disorder Assessment and Plan: Per outpatient psychiatrist, Dr. Pablo-- unclear if pt has formal dx of ASD Plan Ms. Morrison is a 19 yo SWF with h/o ASD, borderline personality d/o, PTSD, selective mutism, MDD with psychotic features, multiple inpt hospitalizations and suicide attempts, and severe TBI at age 9 who was brought to the ED by ambulance due to SI. Pt is agreeable with taking her usual home medication regimen for now and was able to communicate by writing to clarify the timing and doses of her meds. Pt is admitted to [facility] M3 psych unit for safety & stabilization Legal status- CV 15 min safety checks Continue home meds- buspirone 25 mg tid melatonin 6 mg qhs natlrexone 50 mg qam trazodone 50 mg qhs prn for insomnia Will start prazosin 1 mg tonight since it's not clear when pt last took it (off-label for nightmares) Will give Seroquel 400 mg qhs and request 400 mg XR as non-formulary med Milieu therapy Care coordination- I will call Dr. Pablo tomorrow Obtain collateral contact with pt's mother 05/30: Remains selectively mute. She has not engaged in behaviors that put her at risk of harm to self/others on the unit. Per t/w's communication with pt's outpatient psychiatrist, Dr. Pablo, a short hospitalization is recommended. Pt has a good outpatient support team who know pt well. 05/31: Pt is speaking fluently today, reports signif mood improvement. She has not engaged in any self harming/aggressive behaviors. She agrees with recs to titrate sertraline to 150 mg to optimize tx of depression, anxiety and premenstrual exacerbation of mood sx 06/01: Continue current regimen and plans. Prazosin increased to 2 mg nightly Patient educated on: medication risk/benefits Reason for continued inpatient stay Substantial Risk for: med/psych decompensation Time Spent With Patient Time: Total time managing care of this patient today ____ minutes.
[2025-06-01 19:17] VITALS: BP 127/87; PULSE 82; RESP 18; TEMP 36.8; O2SAT 97
[2025-06-01 21:20] VITALS: BP 157/72
[2025-06-02 08:00] VITALS: BP 103/58; PULSE 76; RESP 18; TEMP 36.2; O2SAT 97
[2025-06-02] MEDS: BUSPIRONE HCL 25 MG PO ×3 (09:41→20:21)
--- NOTE | 2025-06-02 11:15 | HO.PSYCHPN ---
Subjective Subjective Date of Service: 06/02/25 Reason For Visit: SI Subjective Notes: Conditional Voluntary Interim History: Patient was seen and discussed in rounds today. Records and plans were reviewed. She has been stable and feels that the increase of prazosin was little more helpful. We will stay at the current dose of 2 mg. No complaints or side effects. Eating and sleeping adequately. No SI. Social interactions present. No changes were made today Review of Systems Review of Systems Yes all other systems are reviewed and are negative Mental Status Exam Mental Status Exam Narrative: In today's visit she is alert, oriented and pleasant. Normal speech. Good eye contact. Appropriate affect. No signs of psychosis. No SI/AVH. Cognitively intact. Judgment intact Diagnostics Vital Signs (24Hr): Vital Signs - 24 hr 06/01/25 19:17 06/01/25 21:20 06/02/25 08:00 Temperature 98.3 F 97.2 F Pulse Rate 82 76 Respiratory Rate 18 18 Blood Pressure 127/87 157/72 H 103/58 L Pulse Oximetry 97 97 Oxygen Delivery Method Room Air Room Air BMI result Body Mass Index 42.7 Labs 05/30/25 12:01 05/30/25 12:01 Medications Medications Current Medications Acetaminophen (Acetaminophen 325 Mg Tablet) 650 mg PO Q6H PRN PRN Reason: Headache/Pain, Scale 1-10 Al Hydroxide/Mg Hydroxide (Magnesium Hydrox/Alum Hydrox 30 Ml Oral.Susp) 30 ml PO Q6H PRN PRN Reason: Heartburn/Nausea Buspirone HCl 20 mg/ Buspirone (HCl 5 mg) 25 mg PO TID [facility] Last Admin: 06/02/25 09:41 Dose: 25 mg Cyanocobalamin (Cyanocobalamin (Vitamin B-12) 100 Mcg Tablet) 100 mcg PO DAILY [facility] Last Admin: 06/02/25 09:42 Dose: 100 mcg Hydroxyzine HCl (Hydroxyzine Hcl 25 Mg Tablet) 25 mg PO Q6H PRN PRN Reason: Anxiety Last Admin: 06/01/25 17:20 Dose: 25 mg Magnesium Hydroxide (Milk Of Magnesia 30 Ml Oral.Susp) 30 ml PO DAILY PRN PRN Reason: Constipation Melatonin (Melatonin 3 Mg Tablet) 6 mg PO BEDTIME [facility] Last Admin: 06/01/25 21:18 Dose: 6 mg Metformin HCl (Metformin Hcl 500 Mg Tablet) 500 mg PO BID [facility] Last Admin: 06/02/25 09:42 Dose: 500 mg Multivitamins/Vitamin C (Multivitamin Tablet) 1 tab PO DAILY [facility] Last Admin: 06/02/25 09:42 Dose: 1 tab Naltrexone HCl (Naltrexone Hcl 50 Mg Tablet) 50 mg PO DAILY [facility] Last Admin: 06/02/25 09:42 Dose: 50 mg Prazosin HCl (Prazosin Hcl 1 Mg Capsule) 2 mg PO BEDTIME [facility]; Protocol Last Admin: 06/01/25 21:20 Dose: 2 mg Quetiapine Fumarate (Quetiapine Fumarate 25 Mg Tablet) 25 mg PO TID PRN PRN Reason: anxiety and/or mild agitation Last Admin: 05/30/25 20:57 Dose: 25 mg Quetiapine Fumarate (Quetiapine Fumarate 400 Mg Tablet) 400 mg PO BEDTIME [facility] Last Admin: 06/01/25 21:19 Dose: 400 mg Sertraline HCl (Sertraline Hcl 100 Mg Tablet) 100 mg PO DAILY [facility] Last Admin: 06/02/25 09:41 Dose: 100 mg Sertraline HCl (Sertraline Hcl 50 Mg Tablet) 50 mg PO DAILY [facility] Last Admin: 06/02/25 09:42 Dose: 50 mg Trazodone HCl (Trazodone Hcl 50 Mg Tablet) 50 mg PO BEDTIME MRX1 PRN PRN Reason: Insomnia Vitamin D (Cholecalciferol (Vitamin D3) 25 Mcg Tablet) 50 mcg PO DAILY [facility] Last Admin: 06/02/25 09:41 Dose: 50 mcg Allergies Allergies Allergy/AdvReac Type Severity Reaction Status Date / Time omeprazole Allergy Unknown Verified 05/28/25 17:50 Pork/Porcine Containing Allergy Unknown Verified 05/28/25 17:50 Products haloperidol (From Haldol) AdvReac Severe Involuntary Verified 01/13/24 04:27 Spasms Assessment & Plan Assessment & Plan (1) Borderline personality disorder: Status: Acute Code(s): F60.3 - Borderline personality disorder (2) MDD (major depressive disorder), recurrent episode: Status: Acute Code(s): F33.9 - Major depressive disorder, recurrent, unspecified (3) PTSD (post-traumatic stress disorder): Status: Acute Code(s): F43.10 - Post-traumatic stress disorder, unspecified (4) Autism: Status: Acute Code(s): F84.0 - Autistic disorder Assessment and Plan: Per outpatient psychiatrist, Dr. Pablo-- unclear if pt has formal dx of ASD Plan Ms. Morrison is a 19 yo SWF with h/o ASD, borderline personality d/o, PTSD, selective mutism, MDD with psychotic features, multiple inpt hospitalizations and suicide attempts, and severe TBI at age 9 who was brought to the ED by ambulance due to SI. Pt is agreeable with taking her usual home medication regimen for now and was able to communicate by writing to clarify the timing and doses of her meds. Pt is admitted to [facility] M3 psych unit for safety & stabilization Legal status- CV 15 min safety checks Continue home meds- buspirone 25 mg tid melatonin 6 mg qhs natlrexone 50 mg qam trazodone 50 mg qhs prn for insomnia Will start prazosin 1 mg tonight since it's not clear when pt last took it (off-label for nightmares) Will give Seroquel 400 mg qhs and request 400 mg XR as non-formulary med Milieu therapy Care coordination- I will call Dr. Pablo tomorrow Obtain collateral contact with pt's mother 05/30: Remains selectively mute. She has not engaged in behaviors that put her at risk of harm to self/others on the unit. Per t/w's communication with pt's outpatient psychiatrist, Dr. Pablo, a short hospitalization is recommended. Pt has a good outpatient support team who know pt well. 05/31: Pt is speaking fluently today, reports signif mood improvement. She has not engaged in any self harming/aggressive behaviors. She agrees with recs to titrate sertraline to 150 mg to optimize tx of depression, anxiety and premenstrual exacerbation of mood sx 06/01: Continue current regimen and plans. Prazosin increased to 2 mg nightly Reason for continued inpatient stay Substantial Risk for: med/psych decompensation Time Spent With Patient Time: Total time managing care of this patient today ____ minutes.
[2025-06-02 20:00] VITALS: BP 108/62; PULSE 82; RESP 18; TEMP 36.8; O2SAT 98
[2025-06-02 20:21] VITALS: BP 108/62
[2025-06-03 07:46] VITALS: BP 115/64; PULSE 75; RESP 20; TEMP 36.6; O2SAT 99
[2025-06-03] MEDS: BUSPIRONE HCL 25 MG PO ×3 (08:56→21:28)
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
[2025-06-03 21:23] VITALS: BP 110/59; PULSE 97; RESP 17; TEMP 36.7; O2SAT 97
[2025-06-04 08:00] VITALS: BP 99/55; PULSE 81; RESP 16; TEMP 36.8; O2SAT 95
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
[2025-06-04] MEDS: BUSPIRONE HCL 25 MG PO ×3 (09:39→22:05)
[2025-06-04 22:03] VITALS: BP 132/61; PULSE 99; RESP 16; TEMP 37.1; O2SAT 97
[2025-06-05 07:47] VITALS: BP 95/54; PULSE 72; RESP 18; TEMP 36.3; O2SAT 98
[2025-06-05] MEDS: BUSPIRONE HCL 25 MG PO ×3 (10:42→20:05)
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
[2025-06-05 20:00] VITALS: BP 126/75; PULSE 102; RESP 16; TEMP 36.7; O2SAT 97
[2025-06-05 20:05] VITALS: BP 126/75
[2025-06-06 07:00] VITALS: BMI 43.0
[2025-06-06 07:43] VITALS: BP 134/90; PULSE 81; RESP 18; TEMP 36.7; O2SAT 99
[2025-06-06] MEDS: BUSPIRONE HCL 25 MG PO (08:48)
[2025-06-06 09:51] LABS: Creatinine Clr Calc Pharmacy 127.2; Estimated Glomerular Filt Rate > 60
== END 2025-06-06 11:15 | disposition home or self-care (01) | DRG 751 ==
PROVIDERS: Student in an Organized Health Care Education/Training Program; Admitting Provider Psychiatry & Neurology Psychiatry; Visit Provider Psychiatry & Neurology Psychiatry
DX: F33.9 Major depressive disorder, recurrent, unspecified (principal); R45.851 Suicidal ideations; F43.10 Post-traumatic stress disorder, unspecified; F60.3 Borderline personality disorder; F94.0 Selective mutism; F84.0 Autistic disorder; Z87.820 Personal history of traumatic brain injury; Z79.84 Long term (current) use of oral hypoglycemic drugs; Z79.899 Other long term (current) drug therapy
CPT/HCPCS: 36415; 80053; 80061; 82565; 82607; 83036; 84443; 85025; 90656; 93005

== ENCOUNTER 2025-05-28 15:44 | Outpatient (BNV) | payer OTHER, SELFPAY | END 2025-05-28 22:07 | PROVIDERS: Admitting Provider Psychiatry & Neurology Psychiatry; Visit Provider Internal Medicine Cardiovascular Disease | DX: Z13.6 Encounter for screening for cardiovascular disorders (principal) | CPT/HCPCS: 93010 ==

== ENCOUNTER → 2025-05-28 15:44 | Outpatient (BNV) | payer OTHER, SELFPAY | PROVIDERS: Admitting Provider Psychiatry & Neurology Psychiatry; Visit Provider Psychiatry & Neurology Psychiatry | DX: F33.2 Major depressive disorder, recurrent severe without psychotic features (principal); F60.3 Borderline personality disorder; F43.11 Post-traumatic stress disorder, acute; F84.0 Autistic disorder | CPT/HCPCS: 90792; 99231; 99232 ==

== ENCOUNTER → 2025-05-28 15:44 | Outpatient (BNV) | payer OTHER, SELFPAY | PROVIDERS: Admitting Provider Psychiatry & Neurology Psychiatry; Visit Provider Nurse Practitioner Family | DX: F33.3 Major depressive disorder, recurrent, severe with psychotic symptoms (principal) | CPT/HCPCS: 99221 ==

== ENCOUNTER 2025-07-10 14:35 | Inpatient (IN) | payer OTHER, SELFPAY ==
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
--- OUTSIDE RECORDS SUMMARY | 2025-07-08 17:33 | XMS_ITS | Encounter Summary ---
Author Organization [facility] Address [address] [place] [id number] Phone Support Name Relationship Address Phone Purnima Kothari Unrelated friend [address] [place] [address] Care Team Providers Care Creative Lead Name Role Phone Michael Iqbal DO Primary Care Provider [phone] Reason for Visit * Reason Comments ED Admission Encounter Details Date Type Department Care Team (Late st Contact Info) Description 07/08/2025 5:33 PM EST - 07/10/2025 2:46 PM EST Emergency [facility] - Patient Ping Social History Tobacco Use [...] AM EDT documented as of this encounter Medications at Time of Discharge busPIRone 10 MG tablet Take 3 mg by mouth every afternoon. busPIRone 15 MG tablet Take 15 mg by mouth 3 (three) times a day. 02/20/2023 calcium carbonate EX 750 MG chewable tabletIndications: Lower abdominal pain Chew 1 tablet (750 mg total) daily as needed for indigestion or heartburn. 90 tablet 10/30/2024 cloNIDine 0.1 MG tablet Take 0.1 mg by mouth 2 (two) times a day as needed for high blood pressure. [facility] MELATONIN 5 MG tablet TAKE 1 TABLET BY MOUTH AT BEDTIME FOR SLEEP 2 02/15/2019 [facility] One Daily Essential tabletIndications: Encounter for issue of repeat prescription TAKE 1 TABLET BY MOUTH EVERY DAY 90 tablet 4 07/13/2024 Daily-Janae Multivitamin tabletIndications: Medication refill TAKE 1 TABLET BY MOUTH EVERY DAY 90 tablet 4 06/23/2023 hydrOXYzine 25 MG tablet Take 25 mg by mouth every 6 (six) hours as needed for itching. loratadine 10 MG tabletIndications: Seasonal allergies TAKE 1 TABLET BY MOUTH EVERY DAY 90 tablet 1 11/16/2024 LORazepam 0.5 MG tablet Take 0.5 mg by mouth 2 (two) times a day as needed for anxiety. metFORMIN 500 MG tablet TAKE ONE TABLET EACH MORNING FOR A WEEK, IF TOLERATED, ADD A NIGHTTIME DOSE 11/07/2024 naltrexone 50 MG tablet Take 50 mg by mouth daily. 2 10/25/2019 omeprazole 20 MG delayed-release capsuleIndications :Gastroesophageal reflux disease without esophagitis Take 1 capsule (20 mg total) by mouth daily. 90 capsule 05/18/2025 polyethylene glycol (MiraLax) 17 GM/SCOOP powderIndications: Constipation, unspecified constipation type Take 17 g by mouth daily. Stir and dissolve powder into 4 to 8 ounces of beverage and then drink. 510 g 2 04/20/2024 prazosin 2 MG capsule 06/06/2025 QUEtiapine 400 MG tablet TAKE 1 TABLET BY MOUTH EVERYDAY AT BEDTIME 0 03/10/2020 SERTRALINE HCL PO Take 100 mg by mouth. traZODone 100 MG tablet Take 100 mg by mouth nightly. Vitamin D3 50 MCG (1999) tabletIndications: Medication refill TAKE 1 TABLET BY MOUTH EVERY DAY 90 tablet 1 01/25/2025 documented as of this encounter Plan of Treatment Not on file documented as of this encounter Visit Diagnoses Not on filedocumented in this encounter Care Teams Creative Lead Relationship Specialty Start Date End Date Michael Iqbal DO [address] [place] [address] PCP - General 12/28/17 OPTHAMOLOGY 03/07/18 documented as of this encounter
--- OUTSIDE RECORDS SUMMARY | 2025-07-10 14:35 | XMS_ITS | Encounter Summary ---
Author Organization [facility] Address [address] [place] [id number] Phone Support Name Relationship Address Phone Purnima Kothari Unrelated friend [address] [place] [address] Care Team Providers Care Audit Senior Associate Name Role Phone Michael Iqbal DO Primary Care Provider [phone] Reason for Visit * Reason Comments Inpatient Admission Encounter Details Date Type Department Care Team (Late st Contact Info) Description 07/10/2025 2:35 PM EST Hospital Encounter [facility] - Patient Ping Social History Tobacco Use [...] on filedocumented in this encounter Care Teams Audit Senior Associate Relationship Specialty Start Date End Date Michael Iqbal DO [address] [facility] [place] [address] PCP - General 12/28/17 OPTHAMOLOGY 03/07/18 documented as of this encounter
[2025-07-10 14:49] VITALS: BP 119/58; PULSE 106; RESP 18; TEMP 36; O2SAT 97; BMI 42.8
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
[2025-07-10 20:00] VITALS: BP 139/82; PULSE 81; TEMP 36.4; O2SAT 95
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
--- OUTSIDE RECORDS SUMMARY | 2025-07-11 03:04 | XMS_ITS | Encounter Summary ---
Author Organization [facility] Address [address] [place] [phone] Phone Support Name Relationship Address Phone Purnima Kothari Unrelated friend [address] [place] [address] Care Team Providers Care Stitch Bonding Machine Drawer In Name Role Phone Michael Iqbal DO Primary Care Provider [phone] Reason for Visit * Reason Comments Med Refill Encounter Details Date Type Department Care Team (Late st Contact Info) Description 08/19/2022 Refill [facility] [address] [place] [address] Layo Moon MD [address] [place] [address] Anemia, unspecified type Social History Tobacco Use [...] documented in this encounter Plan of Treatment Not on file documented as of this encounter Visit Diagnoses Diagnosis Anemia, unspecified type documented in this encounter Care Teams Stitch Bonding Machine Drawer In Relationship Specialty Start Date End Date Michael Iqbal DO [address] [place] [address] PCP - General 12/28/17 OPTHAMOLOGY 03/07/18 documented as of this encounter
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
--- OUTSIDE RECORDS SUMMARY | 2025-07-11 03:04 | XMS_ITS | Encounter Summary ---
Author Organization [facility] Address [address] [place] [address] Phone Support Name Relationship Address Phone Purnima Kothari Unrelated friend [address] [place] [address] Care Team Providers Care Judicial Law Clerk Name Role Phone Michael Iqbal DO Primary Care Provider [phone] Encounter Details Date Type Department Care Team (Late st Contact Info) Description 01/08/2018 Conversion Encounter [facility] [address] [place] [address] Michael Iqbal DO [address] [place] [address] Social History Tobacco Use Types Packs/Day Years [...] on filedocumented in this encounter Care Teams Judicial Law Clerk Relationship Specialty Start Date End Date Michael Iqbal DO [address] [place] [address] PCP - General 12/28/17 OPTHAMOLOGY 03/07/18 documented as of this encounter
--- OUTSIDE RECORDS SUMMARY | 2025-07-11 03:04 | XMS_ITS | Encounter Summary ---
Author Organization [facility] Address [address] [place] [id number] Phone Care Team Providers Care Senior Software Development Manager Name Role Phone Michael Iqbal DO Primary Care Provider [phone] Reason for Visit * Reason Comments Med Refill Encounter Details Date Type Department Care Team (Late st Contact Info) Description 01/30/2019 [facility]ill [facility] [address] [address] Alyssa Olivas MD [address] [place] [id number] Asthma, unspecified asthma severity, unspecified whether complicated, [...] Rx Fluticasone nasal spray Rx sent to [facility] verified documented in this encounter Plan of Treatment Not on file documented as of this encounter Visit Diagnoses Diagnosis Asthma, unspecified asthma severity, unspecified whether complicated, unspecified whether persistent- Primary documented in this encounter Care Teams Senior Software Development Manager Relationship Specialty Start Date End Date Michael Iqbal DO 7 [place] [address] PCP - General 12/28/17 OPTHAMOLOGY 03/07/18 documented as of this encounter
--- OUTSIDE RECORDS SUMMARY | 2025-07-11 03:04 | XMS_ITS | Encounter Summary ---
Author Organization [facility] Address [address] [place] [phone] Phone Support Name Relationship Address Phone Purnima Kothari Unrelated friend [address] [place] [address] Care Team Providers Care Solderer Assembler Name Role Phone Michael Iqbal DO Primary Care Provider [phone] Encounter Details Date Type Department Care Team (Late st Contact Info) Description 06/26/2025 Results Follow-Up [facility] [address] [address] Mar De La Torre [facility] [place] [address] Social History Tobacco Use Types Packs/Day Years [...] as of this encounter Miscellaneous Notes * Result Encounter Note - Mar De La Torre CMA - 06/26/2025 2:52 PM EST POCT labs normal documented in this encounter Plan of Treatment Not on file documented as of this encounter Visit Diagnoses Not on filedocumented in this encounter Care Teams Solderer Assembler Relationship Specialty Start Date End Date Michael Iqbal DO [address] [place] [address] PCP - General 12/28/17 OPTHAMOLOGY 03/07/18 documented as of this encounter
--- OUTSIDE RECORDS SUMMARY | 2025-07-11 03:04 | XMS_ITS | Encounter Summary ---
Author Organization [facility] Address [address] [place] [address] Phone Support Name Relationship Address Phone Purnima Kothari Unrelated friend [address] [place] [address] Care Team Providers Care Spiral Winding Machine Helper Name Role Phone Michael Iqbal DO Primary Care Provider [phone] Reason for Visit * Reason Comments Med Refill Encounter Details Date Type Department Care Team (Late st Contact Info) Description 12/17/2022 [facility]ill [facility] [place] [id number] [place] [address] Lor Chinchilla MD [address] [place] [address] Anemia, unspecified type Social History Tobacco Use [...] type documented in this encounter Care Teams Spiral Winding Machine Helper Relationship Specialty Start Date End Date Michael Iqbal DO 7 [facility] [place] [id number] PCP - General 12/28/17 OPTHAMOLOGY 03/07/18 documented as of this encounter
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
--- NOTE | 2025-07-11 09:08 | PM.EVENT ---
Event Note Date of Service: 07/11/25 Event Note: Attempted patient evaluation in her room this am, she would not open her eyes or engage in conversation. If any acute medical issues arise please let us know Time Spent With Patient Time: Total time managing care of this patient today ____ minutes.
[2025-07-11 20:00] VITALS: BP 124/61; PULSE 92; TEMP 36.4; O2SAT 97
[2025-07-11 20:42] VITALS: BP 124/61
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
[2025-07-12 19:52] VITALS: BP 134/70; PULSE 111; TEMP 37.1; O2SAT 97
[2025-07-13 08:30] VITALS: BP 110/64; PULSE 67; RESP 18; TEMP 36.7; O2SAT 98
[2025-07-13 09:17] LABS: Creatinine Clr Calc Pharmacy 144.2; Estimated Glomerular Filt Rate > 60
[2025-07-13 09:24] LABS: Cholesterol 199 mg/dL (<200); HDL Cholesterol 47 mg/dL (>40); Magnesium 1.8 mg/dL (1.6-2.6); Triglycerides 89 mg/dL (<150)
[2025-07-13 09:39] LABS: Free T4 (Free Thyroxine) 1.06 ng/dL (0.71-1.85); Thyroid Stimulating Hormone 1.69 uIU/mL (0.32-4.0)
[2025-07-13 09:55] LABS: Folate 14.6 ng/mL (> or = 4.0); Vitamin B12 783 pg/mL (200-900)
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
[2025-07-13 20:00] VITALS: BP 120/74; PULSE 91; TEMP 36.8; O2SAT 98
[2025-07-13 21:18] VITALS: BP 120/74
[2025-07-14 08:00] VITALS: BP 113/64; PULSE 78; RESP 18; TEMP 36.8; O2SAT 97
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
[2025-07-14 20:00] VITALS: BP 132/77; PULSE 87; TEMP 36.8; O2SAT 97
[2025-07-15 08:00] VITALS: BP 111/59; PULSE 64; TEMP 36.6; O2SAT 98
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
== END 2025-07-15 12:19 | disposition home or self-care (01) | DRG 751 ==
PROVIDERS: Clinical Nurse Specialist Psychiatric/Mental Health, Adult; Admitting Provider Psychiatry & Neurology Psychiatry; Visit Provider Psychiatry & Neurology Psychiatry
DX: F33.3 Major depressive disorder, recurrent, severe with psychotic symptoms (principal); F43.10 Post-traumatic stress disorder, unspecified; F84.0 Autistic disorder; F60.3 Borderline personality disorder; Z87.820 Personal history of traumatic brain injury; Z79.84 Long term (current) use of oral hypoglycemic drugs; Z79.899 Other long term (current) drug therapy
CPT/HCPCS: 36415; 80061; 82565; 82607; 82746; 83036; 83735; 84439; 84443

== ENCOUNTER → 2025-07-10 14:35 | Outpatient (BNV) | payer OTHER, SELFPAY | PROVIDERS: Admitting Provider Psychiatry & Neurology Psychiatry; Visit Provider Nurse Practitioner Family | DX: F60.3 Borderline personality disorder (principal); F33.3 Major depressive disorder, recurrent, severe with psychotic symptoms; F43.11 Post-traumatic stress disorder, acute; F84.0 Autistic disorder; S06.9XAD Unspecified intracranial injury with loss of consciousness status unknown, subsequent encounter | CPT/HCPCS: 90792; 99232 ==